=== PATIENT | male | born 1960 | race Two or more races ===

== ENCOUNTER 2017-11-13 13:21 | Inpatient (IN) | payer BC ==
[~2017-11-13] VITALS: Ht 175.3 cm; Wt 99.8 kg
[2017-11-13] VITALS (14 sets, daily range): BP systolic 125–173; BP diastolic 65–99
[~2017-11-13 13:21] MED LIST: UNOBMED
[2017-11-13] MEDS ORDERED: Morphine Sulfate 10mg/ml Inj IVP ONE (13:45)
[2017-11-13 13:59] LABS: APPEARANCE,URINE CLEAR; BILIRUBIN, URINE NEGATIVE (NEGATIVE); COLOR,URINE PALE YELLOW; GLUCOSE, URINE (UA) NEGATIVE (NEGATIVE); KETONES,URINE 1+ (NEGATIVE); LEUKOCYTE ESTERASE ,URINE NEGATIVE (NEGATIVE); NITRITE,URINE NEGATIVE (NEGATIVE); PH,URINE 7 (4.5-8.0); PROTEIN,URINE 4+ (NEGATIVE); UROBILINOGEN,URINE NORMAL MG/DL (0.0-1.0)
[2017-11-13 14:05] LABS: BASOPHILS % (AUTO) 0.9 % (0.0-2.0); EOSINOPHILS % (AUTO) 2.3 % (0.0-3.0); HEMATOCRIT 50.5 % (42.0-52.0); LYMPHOCYTES % (AUTO) 21.2 % (20.0-45.0); MEAN CORPUSCULAR VOLUME 81 FL (80-99); MONOCYTES % (AUTO) 8.6 % (1.0-10.0); NEUTROPHILS % (AUTO) 66.9 % (45.0-75.0); PLATELET COUNT 271 K/UL (150-450); RED BLOOD COUNT 6.25 M/UL (4.70-6.10); RED CELL DISTRIBUTION WIDTH 12.3 % (11.6-14.8); WHITE BLOOD COUNT 14.5 K/UL (4.8-10.8)
[2017-11-13 14:11] LABS: ANION GAP 8 mmol/L (5-15); BLOOD UREA NITROGEN 20 mg/dL (7-18); CALCIUM 9.2 MG/DL (8.5-10.1); CARBON DIOXIDE 28 MMOL/L (21-32); CHLORIDE 99 MMOL/L (98-107); CREATININE 1.6 MG/DL (0.55-1.30); POTASSIUM 3.6 MMOL/L (3.5-5.1); SODIUM 135 MMOL/L (136-145)
[2017-11-13 14:25] LABS: ALANINE AMINOTRANSFERASE 36 U/L (12-78); ALBUMIN 3.5 G/DL (3.4-5.0); ALBUMIN/GLOBULIN RATIO 0.9 (1.0-2.7); ALKALINE PHOSPHATASE 117 U/L (46-116); ASPARTATE AMINO TRANSFERASE 36 U/L (15-37); BILIRUBIN,TOTAL 0.9 MG/DL (0.2-1.0); CKMB 6.8 NG/ML (0.0-3.6); CREATINE KINASE 391 U/L (26-308)
[2017-11-13] MEDS ORDERED: cefTRIAXone 1 GM in NS 55 ML IVPB ONE (14:30)
--- NOTE | 2017-11-13 14:35 | Emergency Room Report ---
History of Present Illness General Chief Complaint: Abdominal Pain Source: Patient, EMS Present Illness HPI 57-year-old male with history of hypertension, p/w abdominal pain for 3 days. Patient states pain started gradually, localized to epigastric area and then since then has spread all over the abdomen especially the lower parts,, burning in nature, constant. No relieving or exacerbating factors. Severity is 7 out of 10. Denies nausea vomiting or diarrhea. His last bowel movement was on Saturday which was normal. Denies actual fever but states that he has had chills and diaphoresis Only a history of prostate surgery No hx of endoscopies/colonoscopies. Allergies: Coded Allergies: No Known Allergies (Unverified , 11/13/17) Patient History Past Medical History: see triage record Past Surgical History: none Pertinent Family History: none Social History: Reports: smoking - used to smoke 5 cigarettes a day only Reviewed Nursing Documentation: PMH: Agreed; PSxH: Agreed Nursing Documentation-PMH Past Medical History: No Stated History Hx Hypertension: Yes Review of Systems All Other Systems: negative except mentioned in HPI Physical Exam Vital Signs Date Time Temp Pulse Resp B/P (MAP) Pulse Ox O2 Delivery O2 Flow Rate FiO2 11/13/17 13:17 98.8 88 18 9/76 98 Room Air 98.8 Sp02 EP Interpretation: reviewed, normal General Appearance: alert, GCS 15, non-toxic, moderate distress Head: normocephalic, atraumatic Eyes: bilateral eye normal inspection, bilateral eye PERRL, bilateral eye EOMI ENT: normal ENT inspection, normal pharynx, normal voice, moist mucus membranes Neck: normal inspection, full range of motion, supple Respiratory: normal inspection, lungs clear, normal breath sounds, no respiratory distress, no retraction, no wheezing, speaking full sentences, chest symmetrical Cardiovascular #1: normal inspection, regular rate, rhythm, no edema, normal capillary refill Cardiovascular #2: 2+ radial (R), 2+ radial (L) Gastrointestinal: other - Slightly distended abdomen, has generalized tenderness however is soft, not peritoneal, no rigidity Genitourinary: no CVA tenderness Musculoskeletal: normal inspection, back normal, normal range of motion, non- tender Neurologic: normal inspection, alert, oriented x3, responsive, motor strength/ tone normal, sensory intact, normal gait, speech normal Psychiatric: normal inspection, judgement/insight normal, memory normal Skin: normal inspection, normal color, no rash, warm/dry, well hydrated, normal turgor Medical Decision Making Diagnostic Impression: Primary Impression: Acute cholecystitis ER Course 57-year-old male with abdominal pain Differential Diagnosis: Gastritis, gastroenteritis, cholecystitis, appendicitis, diverticulitis, SBO, AAA, cardiac, UTI/pyelo . Plan: Basic labs, ua, ekg pain control, IVF CT abdopelvis without contrast was already ordered ER course: Patient has remained HD stable during ED stay. he received IVF, and abx has been NPO since 6am +acute cholecysitits on CT, Dr Porter came to see pt and will take to OR Disposition: Patient will be admitted to med surg via OR with Dr Porter Please note that this Emergency Department Report was dictated using [employer] graphic [employer] software, occasionally this can lead to erroneous entry secondary to interpretation by the dictation equipment EKG Diagnostic Results EP Interpretation: Yes Rate: normal Rhythm: NSR ST Segments: Slight prolonged QT at 482, ST depressions in V4 V5, ST depressions aVL ASA given to patient: No Rhythm Strip EP Interpretation: Yes Rate: 90 Rhythm: NSR, no PVCs, no ectopy Chest X-ray CXR: Ordered: Yes 1 view Indication: Chest pain EP interpretation: Yes Interpretation: No consolidation, no effusion, no PTX, no acute cardiopulmonary disease Impression: No acute disease Electronically signed by Jody Wiggins MD Laboratory Tests Test 11/13/17 13:30 11/13/17 13:39 11/13/17 15:00 Urine Color Pale yellow Urine Appearance Clear Urine pH 7 (4.5-8.0) Urine Specific [place] 1.010 (1.005-1.035) Urine Protein 4+ (NEGATIVE) H Urine Glucose (UA) Negative (NEGATIVE) Urine Ketones 1+ (NEGATIVE) H Urine Occult Blood 2+ (NEGATIVE) H Urine Nitrite Negative (NEGATIVE) Urine Bilirubin Negative (NEGATIVE) Urine Urobilinogen Normal MG/DL (0.0-1.0) Urine Leukocyte Esterase Negative (NEGATIVE) Urine RBC 2-4 /HPF (0 - 0) H Urine WBC 0-2 /HPF (0 - 0) Urine Squamous Epithelial Cells Occasional /LPF Urine Bacteria Occasional /HPF (NONE) White Blood Count 14.5 K/UL (4.8-10.8) H Red Blood Count 6.25 M/UL (4.70-6.10) H Hemoglobin 16.0 G/DL (14.2-18.0) Hematocrit 50.5 % (42.0-52.0) Mean Corpuscular Volume 81 FL (80-99) Mean Corpuscular Hemoglobin 25.6 PG (27.0-31.0) L Mean Corpuscular Hemoglobin Concent 31.6 G/DL (32.0-36.0) L Red Cell Distribution Width 12.3 % (11.6-14.8) Platelet Count 271 K/UL (150-450) Mean Platelet Volume 6.0 FL (6.5-10.1) L Neutrophils (%) (Auto) 66.9 % (45.0-75.0) Lymphocytes (%) (Auto) 21.2 % (20.0-45.0) Monocytes (%) (Auto) 8.6 % (1.0-10.0) Eosinophils (%) (Auto) 2.3 % (0.0-3.0) Basophils (%) (Auto) 0.9 % (0.0-2.0) Sodium Level 135 MMOL/L (136-145) L Potassium Level 3.6 MMOL/L (3.5-5.1) Chloride Level 99 MMOL/L (98-107) Carbon Dioxide Level 28 MMOL/L (21-32) Anion Gap 8 mmol/L (5-15) Blood Urea Nitrogen 20 mg/dL (7-18) H Creatinine 1.6 MG/DL (0.55-1.30) H Estimate Glomerular Filtration Rate 44.5 mL/min (>60) Glucose Level 194 MG/DL (74-106) H Calcium Level 9.2 MG/DL (8.5-10.1) Total Bilirubin 0.9 MG/DL (0.2-1.0) Aspartate Amino Transferase (AST) 36 U/L (15-37) Alanine Aminotransferase (ALT) 36 U/L (12-78) Alkaline Phosphatase 117 U/L (46-116) H Total Creatine Kinase 391 U/L (26-308) H Creatine Kinase MB 6.8 NG/ML (0.0-3.6) H Creatine Kinase MB Relative Index 1.7 Troponin I 0.084 ng/mL (0.000-0.056) Total Protein 7.5 G/DL (6.4-8.2) Albumin 3.5 G/DL (3.4-5.0) Globulin 4.0 g/dL Albumin/Globulin Ratio 0.9 (1.0-2.7) L Lipase 117 U/L (73-393) Prothrombin Time 10.0 SEC (9.30-11.50) Prothrombin Time INR 1.0 (0.9-1.1) PTT 26 SEC (23-33) Lactic Acid Level Pending CT/MRI/US Diagnostic Results CT/MRI/US Diagnostic Results : Imaging Test Ordered: CT abdo pelvisd Impression Impression: Abnormal appearing gallbladder, which contains gallstones. There is also moderately dense material filling much of the gallbladder lumen. This may represent tumefactive sludge, an amorphous gallstone tumor, or blood. There is also infiltration of the pericholecystic fat. This raises concern for acute cholecystitis. However, the presence of bloody appearing intraperitoneal fluid also raises concern for gallbladder wall hemorrhage. Ultrasound and/or hepatobiliary nuclear scanning may be useful for further evaluation Mildly ectatic common hepatic duct, tapering to normal caliber distal common bile duct, and no evidence of downstream obstruction. Correlate with liver function tests Other findings as noted, including lobulated bilateral kidneys, evidence of prior TURP, degenerative spondylosis Findings discussed by phone with Dr. Wiggins in the emergency room at the time of interpretation Last Vital Signs Date Time Temp Pulse Resp B/P (MAP) Pulse Ox O2 Delivery O2 Flow Rate FiO2 11/13/17 13:41 98.8 11/13/17 13:17 88 18 9/76 98 Room Air Disposition: ADMITTED INPATIENT Condition: Jody Hogan M.D. Nov 13, 2017 14:35
--- NOTE | 2017-11-13 15:19 | Diagnostic Imaging Report ---
Indication: Epigastric pain Technique: Spiral acquisitions obtained through the abdomen and pelvis. No oral contrast utilized, per emergency room physician request No IV contrast utilized, per referring physician request.. Multiplanar reconstructions were generated. Total dose length product 1043.26 mGycm. CTDIvol(s) 19.75 mGy. Dose reduction achieved using automated exposure control Comparison: None Findings: The gallbladder is very abnormal in appearance. Multiple discrete calcified gallstones are seen within the gallbladder lumen. Also filling the gallbladder lumen is moderately dense material, most of which appears to be separate from the gallbladder wall but may be contiguous with the gallbladder wall inferiorly. There is infiltration of the fat surrounding the gallbladder. There is fluid seen in the peritoneal space adjacent to the tip of the right hepatic lobe and within the right paracolic gutter. There is also fluid in the pelvis, which is somewhat high attenuation, indicating that it may be bloody, and in particular deep within the pelvis higher attenuation of the fluid suggests a component of blood. The gallbladder wall is equivocally edematous. The common hepatic duct is ectatic but tapers to normal caliber, bile duct, and now downstream obstructive lesion is demonstrated. Lack of IV contrast limits assessment of the other solid organs. The liver is grossly unremarkable. The pancreas, spleen, adrenals are unremarkable. The kidneys are lobulated bilaterally, particularly the left, and somewhat atrophic. No definite focal parenchymal abnormality. No hydronephrosis or hydroureter, renal or ureteral calculi. The bladder is equivocally mildly thick-walled, probably an artifact of under distention. The prostate demonstrates a TURP defect. No evidence of diverticulosis or diverticulitis. The appendix is normal. No small bowel distention. No free intraperitoneal air. Distal esophagus, stomach, duodenum are unremarkable. The included lung bases are clear. The bones demonstrate degenerative spondylosis changes. Impression: Abnormal appearing gallbladder, which contains gallstones. There is also moderately dense material filling much of the gallbladder lumen. This may represent tumefactive sludge, an amorphous gallstone tumor, or blood. There is also infiltration of the pericholecystic fat. This raises concern for acute cholecystitis. However, the presence of bloody appearing intraperitoneal fluid also raises concern for gallbladder wall hemorrhage. Ultrasound and/or hepatobiliary nuclear scanning may be useful for further evaluation Mildly ectatic common hepatic duct, tapering to normal caliber distal common bile duct, and no evidence of downstream obstruction. Correlate with liver function tests Other findings as noted, including lobulated bilateral kidneys, evidence of prior TURP, degenerative spondylosis Findings discussed by phone with Dr. Wiggins in the emergency room at the time of interpretation The CT scanner at [facility] is accredited by the [employer] and the scans are performed using protocols designed to limit radiation exposure to as low as reasonably achievable to attain images of sufficient resolution adequate for diagnostic evaluation.
[2017-11-13] MEDS ORDERED: Propofol 200mg/20ml IV ONE (16:38)
[2017-11-13] MEDS ORDERED: Lidocaine 1% MPF 10mg/ml 5ml ONE (16:38)
[2017-11-13] MEDS ORDERED: fentaNYL 100 mcg/2 mL IV ONE (16:41)
[2017-11-13] MEDS ORDERED: Midazolam 2mg/2ml Inj ONE (16:41)
[2017-11-13] MEDS ORDERED: EPINEPHrine 1mg/1ml Amp ONE (16:52)
[2017-11-13] MEDS ORDERED: Lidocaine 1% 10mg/ml/EPI 0.01mg/ml 50ml INJ ONE (16:53)
[2017-11-13] MEDS ORDERED: Iothalamate Meglumine 60% 30ML INJ ONE (16:53)
[2017-11-13] MEDS ORDERED: Bupivacaine 0.25% Inj 30ml INJ ONE (16:53)
[2017-11-13] MEDS ORDERED: Zemuron 50mg/5ml Inj IV ONE (16:58)
[2017-11-13] MEDS ORDERED: NS Irrig 1000ml ONE (17:00)
[2017-11-13] MEDS ORDERED: LR 1000ml ONE (17:00)
[2017-11-13] MEDS ORDERED: Sterile Water Irrig 1000ml IRRIG ONE (17:00)
--- NOTE | 2017-11-13 17:02 | Consultation ---
History of Present Illness General Date patient seen: Nov 13, 2017 Chief Complaint: Abdominal Pain Reason for Consultation: abdominal pain Present Illness HPI 57M presented to ED with complaints of worsening abdominal pain. States he first began to note abdominal discomfort 4 days ago and since has been worsening. abdominal pain described as 6-8/10 generalized pain but some focus in RUQ. no n/v/f/c. in Ed noted to have leukocytosis and CT scan with findings as noted below. surgery called to evaluate. patient seen, chart reviewed, patient examined. no prior episodes. last meal this AM. no radiation of pain. no prior abdominal surgery. Allergies: Coded Allergies: No Known Allergies (Unverified , 11/13/17) Medication History Miscellaneous Medications Unable to Obtain Medications (Unable To Obtain Meds), (Reported) Patient History History Provided By: Patient, Medical Record, PMD Healthcare decision maker N Resuscitation status Advanced Directive on File Past Medical/Surgical History Past Medical/Surgical History: (1) Acute cholecystitis Review of Systems Constitutional: Reports: no symptoms; Denies: see HPI, chills, sweats, fever, malaise, weakness, other Eye: Reports: no symptoms; Denies: see HPI, eye pain, blurred vision, tearing, double vision, nose pain, nose congestion, acuity changes, discharge, other ENT: Denies: no symptoms, see HPI, ear pain, ear discharge, nose pain, nose congestion, throat pain, throat swelling, mouth pain, hearing loss, nasal discharge, other Respiratory: Denies: no symptoms, see HPI, cough, orthopnea, shortness of breath, stridor, wheezing, LEVY, sputum, other Cardiovascular: Denies: no symptoms, see HPI, chest pain, edema, palpitations, syncope, PND, other Gastrointestinal: Reports: abdominal pain Genitourinary: Denies: no symptoms, see HPI, discharge, dysuria, frequency, hematuria, pain, retention, incontinence, urgency, vag bleed/dc, other Musculoskeletal: Denies: no symptoms, see HPI, back pain, gout, joint pain, joint swelling, muscle pain, muscle stiffness, other Skin: Denies: no symptoms, see HPI, rash, change in color, change in hair/nails , dryness, lesions, other Psychiatric: Denies: no symptoms, see HPI, prior hx, anxiety, depressed feelings, emotional problems, SI, HI, hallucinations, other Neurological: Denies: no symptoms, see HPI, headache, numbness, paresthesia, seizure, tingling, tremors, focal weakness, syncope, dizziness, other Endocrine: Denies: no symptoms, see HPI, excessive sweating, flushing, intolerance to temperature, increased thirst, increased urine, unexplained weight loss, other Hematologic/Lymphatic: Denies: no symptoms, see HPI, anemia, blood clots, easy bleeding, easy bruising, swollen glands, diathesis, other All Other Systems: negative except mentioned in HPI Physical Exam General Appearance: no apparent distress Lines, tubes and drains: peripheral HEENT: normocephalic, atraumatic, mucous membranes moist Neck: normal inspection Respiratory/Chest: normal breath sounds, no respiratory distress, no accessory muscle use Cardiovascular/Chest: normal peripheral pulses, normal rate Abdomen: distended, guarding, rebound, tender, other - RUQ tenderness with + Baylis and focal peritonitis. Extremities: non-tender Skin Exam: normal pigmentation Neurologic: alert, oriented x 3 Last 24 Hour Vital Signs Date Time Temp Pulse Resp B/P (MAP) Pulse Ox O2 Delivery O2 Flow Rate FiO2 11/13/17 16:46 90 24 162/68 98 Room Air 11/13/17 15:23 98.8 11/13/17 15:00 100 22 134/69 97 Room Air 11/13/17 13:41 98.8 11/13/17 13:17 98.8 88 18 9/76 98 Room Air 98.8 Laboratory Tests Test 11/13/17 13:30 11/13/17 13:39 11/13/17 15:00 Urine Color Pale yellow Urine Appearance Clear Urine pH 7 (4.5-8.0) Urine Specific [place] 1.010 (1.005-1.035) Urine Protein 4+ (NEGATIVE) H Urine Glucose (UA) Negative (NEGATIVE) Urine Ketones 1+ (NEGATIVE) H Urine Occult Blood 2+ (NEGATIVE) H Urine Nitrite Negative (NEGATIVE) Urine Bilirubin Negative (NEGATIVE) Urine Urobilinogen Normal MG/DL (0.0-1.0) Urine Leukocyte Esterase Negative (NEGATIVE) Urine RBC 2-4 /HPF (0 - 0) H Urine WBC 0-2 /HPF (0 - 0) Urine Squamous Epithelial Cells Occasional /LPF Urine Bacteria Occasional /HPF (NONE) White Blood Count 14.5 K/UL (4.8-10.8) H Red Blood Count 6.25 M/UL (4.70-6.10) H Hemoglobin 16.0 G/DL (14.2-18.0) Hematocrit 50.5 % (42.0-52.0) Mean Corpuscular Volume 81 FL (80-99) Mean Corpuscular Hemoglobin 25.6 PG (27.0-31.0) L Mean Corpuscular Hemoglobin Concent 31.6 G/DL (32.0-36.0) L Red Cell Distribution Width 12.3 % (11.6-14.8) Platelet Count 271 K/UL (150-450) Mean Platelet Volume 6.0 FL (6.5-10.1) L Neutrophils (%) (Auto) 66.9 % (45.0-75.0) Lymphocytes (%) (Auto) 21.2 % (20.0-45.0) Monocytes (%) (Auto) 8.6 % (1.0-10.0) Eosinophils (%) (Auto) 2.3 % (0.0-3.0) Basophils (%) (Auto) 0.9 % (0.0-2.0) Sodium Level 135 MMOL/L (136-145) L Potassium Level 3.6 MMOL/L (3.5-5.1) Chloride Level 99 MMOL/L (98-107) Carbon Dioxide Level 28 MMOL/L (21-32) Anion Gap 8 mmol/L (5-15) Blood Urea Nitrogen 20 mg/dL (7-18) H Creatinine 1.6 MG/DL (0.55-1.30) H Estimat Glomerular Filtration Rate 44.5 mL/min (>60) Glucose Level 194 MG/DL (74-106) H Calcium Level 9.2 MG/DL (8.5-10.1) Total Bilirubin 0.9 MG/DL (0.2-1.0) Aspartate Amino Transf (AST/SGOT) 36 U/L (15-37) Alanine Aminotransferase (ALT/SGPT) 36 U/L (12-78) Alkaline Phosphatase 117 U/L (46-116) H Total Creatine Kinase 391 U/L (26-308) H Creatine Kinase MB 6.8 NG/ML (0.0-3.6) H Creatine Kinase MB Relative Index 1.7 Troponin I 0.084 ng/mL (0.000-0.056) Total Protein 7.5 G/DL (6.4-8.2) Albumin 3.5 G/DL (3.4-5.0) Globulin 4.0 g/dL Albumin/Globulin Ratio 0.9 (1.0-2.7) L Lipase 117 U/L (73-393) Prothrombin Time 10.0 SEC (9.30-11.50) Prothromb Time International Ratio 1.0 (0.9-1.1) Activated Partial Thromboplast Time 26 SEC (23-33) Lactic Acid Level 1.30 mmol/L (0.4-2.0) Height (Feet): 5 Height (Inches): 9.00 Weight (Pounds): 220 Assessment/Plan Problem List: (1) Acute cholecystitis Assessment & Plan: 57M with acute cholecystitis. Afebrile, HD stable, leukocytosis 14k, elevated alk phos, CT scan as noted. exam with focal RUQ peritonitis, generalized tenderness, +Baylis. CT scan very concerning given look of GB. exam significant given above needs to go to OR to OR for lap vs open anthony possible IOC long discussion with patient about high risk for open given how GB looks on CT consent npo iv fluids iv abx ICD Codes: K81.0 - Acute cholecystitis SNOMED: [id number] Status: stable CharlotteChris Nov 13, 2017 17:02
--- NOTE | 2017-11-13 17:04 | Anethesia Preoperative Eval ---
Anesthesia Pre-op PMH/ROS General Date of Evaluation: Nov 13, 2017 Time of Evaluation: 17:00 Anesthesiologist: ASA Score: ASA 3 Mallampati Score Class I : Soft palate, uvula, fauces, pillars visible Class II: Soft palate, uvula, fauces visible Class III: Soft palate, base of uvula visible Class IV: Only hard plate visible Mallampati Classification: Class III Surgeon: дмитрий Diagnosis: acute cholecystitis Surgical Procedure: lap anthony Anesthesia History: none Allergies: Coded Allergies: No Known Allergies (Unverified , 11/13/17) Medications: see eMAR Past Medical History Cardiovascular: Reports: HTN Pulmonary: Denies: asthma, COPD, [place], other Gastrointestinal/Genitourinary: Reports: other - acute cholecystitis; Denies: GERD, CRI, ESRD Neurologic/Psychiatric: Denies: dementia, CVA, depression/anxiety, TIA, other Endocrine: Denies: DM, hypothyroidism, steroids, other HEENT: Denies: cataract (L), cataract (R), glaucoma, [place] (L), [place] (R), other Hematology/Immune: Denies: anemia, DVT, bleeding disorder, other Musculoskeletal/Integumentary: Denies: OA, RA, DJD, DDD, edema, other Other: obesity PSxH Narrative: prostate, breast mass excision Anesthesia Pre-op Phys. Exam Physician Exam Last Vital Signs Date Time Temp Pulse Resp B/P (MAP) Pulse Ox O2 Delivery O2 Flow Rate FiO2 11/13/17 16:46 90 24 162/68 98 Room Air 11/13/17 15:23 98.8 Constitutional: other - abdominal discomfort Cardiovascular: RRR Respiratory: CTA Gastrointestinal: other - abdominal discomfort Airway Exam Mallampati Score: Class II MO: full ROM: full Teeth: intact Dentures: no upper, no lower Anesthesia Pre-op A/P Labs Hematology Test 11/13/17 13:39 White Blood Count 14.5 K/UL (4.8-10.8) H Red Blood Count 6.25 M/UL (4.70-6.10) H Hemoglobin 16.0 G/DL (14.2-18.0) Hematocrit 50.5 % (42.0-52.0) Mean Corpuscular Volume 81 FL (80-99) Mean Corpuscular Hemoglobin 25.6 PG (27.0-31.0) L Mean Corpuscular Hemoglobin Concent 31.6 G/DL (32.0-36.0) L Red Cell Distribution Width 12.3 % (11.6-14.8) Platelet Count 271 K/UL (150-450) Mean Platelet Volume 6.0 FL (6.5-10.1) L Neutrophils (%) (Auto) 66.9 % (45.0-75.0) Lymphocytes (%) (Auto) 21.2 % (20.0-45.0) Monocytes (%) (Auto) 8.6 % (1.0-10.0) Eosinophils (%) (Auto) 2.3 % (0.0-3.0) Basophils (%) (Auto) 0.9 % (0.0-2.0) Coagulation Test 11/13/17 15:00 Prothrombin Time 10.0 SEC (9.30-11.50) Prothromb Time International Ratio 1.0 (0.9-1.1) Activated Partial Thromboplast Time 26 SEC (23-33) Chemistry Test 11/13/17 13:39 11/13/17 15:00 Sodium Level 135 MMOL/L (136-145) L Potassium Level 3.6 MMOL/L (3.5-5.1) Chloride Level 99 MMOL/L (98-107) Carbon Dioxide Level 28 MMOL/L (21-32) Anion Gap 8 mmol/L (5-15) Blood Urea Nitrogen 20 mg/dL (7-18) H Creatinine 1.6 MG/DL (0.55-1.30) H Estimat Glomerular Filtration Rate 44.5 mL/min (>60) Glucose Level 194 MG/DL (74-106) H Calcium Level 9.2 MG/DL (8.5-10.1) Total Bilirubin 0.9 MG/DL (0.2-1.0) Aspartate Amino Transf (AST/SGOT) 36 U/L (15-37) Alanine Aminotransferase (ALT/SGPT) 36 U/L (12-78) Alkaline Phosphatase 117 U/L (46-116) H Total Creatine Kinase 391 U/L (26-308) H Creatine Kinase MB 6.8 NG/ML (0.0-3.6) H Creatine Kinase MB Relative Index 1.7 Troponin I 0.084 ng/mL (0.000-0.056) Total Protein 7.5 G/DL (6.4-8.2) Albumin 3.5 G/DL (3.4-5.0) Globulin 4.0 g/dL Albumin/Globulin Ratio 0.9 (1.0-2.7) L Lipase 117 U/L (73-393) Lactic Acid Level 1.30 mmol/L (0.4-2.0) Risk Assessment & Plan Assessment: asa 3 Plan: ETGA Pre-Antibiotics Drug: ancef 2 grams Given Within 1 Hr of Incision: Yes Time Given: 17:50 Bev Wheeler M.D. Nov 13, 2017 17:04
--- NOTE | 2017-11-13 17:04 | Pre-Procedure Note/Attestation ---
Pre-Procedure Note/Attestation Complete Prior to Procedure Procedure Narrative: laparoscopic cholecystectomy, possible open, possible intraoperative cholangiogram Indications for Procedure Pre-Operative Diagnosis: acute cholecystitis Attestation I attest that I discussed the nature of the procedure; its benefits; risks and complications; and alternatives (and the risks and benefits of such alternatives ), prior to the procedure, with the patient (or the patient's legal bilingual inside sales representative). I attest that, if there was a reasonable possibility of needing a blood transfusion, the patient (or the patient's legal bilingual inside sales representative) was given the [facility] standardized written summary, pursuant to the [place] Blood Safety Act ([place] Health and Safety Code # 1645, as amended). I attest that I re-evaluated the patient just prior to the surgery and that there has been no change in the patient's H&P, except as documented below: Chris Porter Nov 13, 2017 17:04
[2017-11-13] MEDS ORDERED: Succinylcholine 20mg/ml 10ml vial ONE (17:15)
[2017-11-13] MEDS ORDERED: LR 1000ml 1,000 ML IVLG SCH (18:07)
[2017-11-13] MEDS ORDERED: DiphenhydrAMINE 50mg/ml Inj IVP PRN ×2 (18:15→22:30)
[2017-11-13] MEDS ORDERED: Hydromorphone 0.5mg/0.5ml inj IVP PRN (18:15)
[2017-11-13] MEDS ORDERED: Labetalol 5mg/ml 20ml vial IV PRN (18:15)
[2017-11-13] MEDS ORDERED: fentaNYL 100 mcg/2 mL IV PRN (18:15)
[2017-11-13] MEDS ORDERED: Surgicel 4in x 8in TOPIC ONE (19:00)
[2017-11-13] MEDS ORDERED: Neostigmine 1mg/ml 10ml Inj ONE (19:24)
[2017-11-13] MEDS ORDERED: Glycopyrrolate 0.2mg/ml 1ml Vial ONE ×2 (19:37→19:55)
--- NOTE | 2017-11-13 19:57 | Brief Operative Note ---
Immediate Post Operative Note Operative Note Pre-op Diagnosis: acute cholecystitis Procedure: laparoscopic converted to open cholecystectomy Post-op Diagnosis: acute gangrenous hemorrhagic cholecystitis Surgeon: дмитрий Anesthesiologist: Marcello Anesthesia: general Specimen: yes - gallbladder and stones Complications: none Condition: stable Fluids: see records Estimated Blood Loss: minimal - 500 Drains: none Implant(s) used?: No Chris Porter Nov 13, 2017 19:57
[2017-11-13] MEDS ORDERED: Sugammadex Sodium 200mg/2ml vial IV ONE (20:12)
--- NOTE | 2017-11-13 20:28 | Immediate Post-Op Evaluation ---
Immediate Post-Op Evalulation Immediate Post-Op Evalulation Procedure: attempt lap anthony converted to open cholecystectomy Date of Evaluation: Nov 13, 2017 Time of Evaluation: 20:05 IV Fluids: LR 2600ml Blood Products: 0 Estimated Blood Loss: 500ml Urinary Output: 0 Blood Pressure Systolic: 175 Blood Pressure Diastolic: 95 Pulse Rate: 112 Respiratory Rate: 22 O2 Sat by Pulse Oximetry: 99 Temperature (Fahrenheit): 97 Pain Score (1-10): 0 Nausea: No Vomiting: No Complications none Patient Status: awake, patent, none Hydration Status: adequate Drug: ancef 2 gram Given Within 1 Hr of Incision: Yes Time Given: 17:45 Bev Wheeler M.D. Nov 13, 2017 20:28
[2017-11-13] MEDS ORDERED: Meperidine 50mg/ml Inj(FOR RIGORS ONLY) ONE (20:31)
[2017-11-13] MEDS ORDERED: Meperidine 50mg/ml Inj(FOR RIGORS ONLY) IVP ONE (21:30)
[2017-11-13] MEDS ORDERED: Metoclopramide 10mg/2ml Inj IVP PRN (22:30)
[2017-11-13] MEDS ORDERED: Morphine Sulfate 4mg/ml Inj IVP PRN (22:31)
[2017-11-13] MEDS ORDERED: Norco 5mg/325mg tab ORAL PRN (22:31)
[2017-11-13] MEDS ORDERED: Zolpidem 5mg tab ORAL PRN (22:31)
[2017-11-13] MEDS ORDERED: Milk of Magnesia 30ml Ud ORAL PRN (22:31)
[2017-11-13] MEDS ORDERED: Piperacillin/Tazobactam 3.375 GM in NS 110 ML IVPB ONE (23:00)
[2017-11-13] MEDS ORDERED: Zosyn 3.375gm inj ONE (23:11)
[2017-11-13] MEDS: D5 1/2NS w/KCl 20mEq 1,000 ML IV SCH (23:20)
[2017-11-14] VITALS: BP 121/64
[2017-11-14 04:00] VITALS: BP 121/66
[2017-11-14] MEDS: D5 1/2NS w/KCl 20mEq 1,000 ML IV SCH ×3 (06:16→22:03)
[2017-11-14 06:44] LABS: BASOPHILS % (AUTO) 0.7 % (0.0-2.0); HEMOGLOBIN 12.4 G/DL (14.2-18.0); LYMPHOCYTES % (AUTO) 10.1 % (20.0-45.0); MEAN CORPUSCULAR VOLUME 80 FL (80-99); MONOCYTES % (AUTO) 10.8 % (1.0-10.0); NEUTROPHILS % (AUTO) 78.4 % (45.0-75.0); PLATELET COUNT 236 K/UL (150-450); RED BLOOD COUNT 4.76 M/UL (4.70-6.10); RED CELL DISTRIBUTION WIDTH 12.3 % (11.6-14.8)
[2017-11-14 07:15] LABS: ALANINE AMINOTRANSFERASE 191 U/L (12-78); ALBUMIN 2.3 G/DL (3.4-5.0); ALBUMIN/GLOBULIN RATIO 0.7 (1.0-2.7); ALKALINE PHOSPHATASE 104 U/L (46-116); ANION GAP 8 mmol/L (5-15); ASPARTATE AMINO TRANSFERASE 203 U/L (15-37); BILIRUBIN,TOTAL 1.4 MG/DL (0.2-1.0); BLOOD UREA NITROGEN 26 mg/dL (7-18); CALCIUM 7.8 MG/DL (8.5-10.1); CARBON DIOXIDE 24 MMOL/L (21-32); CHLORIDE 104 MMOL/L (98-107); CREATININE 1.8 MG/DL (0.55-1.30); POTASSIUM 4.4 MMOL/L (3.5-5.1); SODIUM 136 MMOL/L (136-145)
[2017-11-14 07:16] LABS: BILIRUBIN,DIRECT 0.5 MG/DL (0.0-0.3)
[2017-11-14 08:00] VITALS: BP 127/62
[2017-11-14] MEDS: Docusate 100mg cap ORAL SCH ×2 (09:37→17:30)
[2017-11-14] MEDS: HYDROcodone/Acetamin 10/325 tab ORAL PRN ×2 (09:37→17:30)
[2017-11-14 12:00] VITALS: BP 130/61
--- NOTE | 2017-11-14 15:03 | History and Physical ---
History of Present Illness General Date patient seen: Nov 14, 2017 Time patient seen: 15:02 Reason for Hospitalization: Abdominal Pain Present Illness HPI 57 y/o male with a PMH of HTN that presented to the ER yesterday for acute RUQ pain. Patient states that he had had abdominal discomfort for the last 4 days and has since been worsening. Patient was noted to have a WBC a [address] was noted to show gallstones with acute cholecystitis and the presence of bloody appearing intraperitoneal fluid raising concern for GB wall hemorrhage. Mildly ectatic common hepatic duct with no e/o downstream obstruction. Patient was also noted to have elevated LFTs. Patient was seen by surgery and taken to the OR last night for an open cholecystectomy with no periop or postop complications. Today, patient is stable with pain well controlled. Rudd catheter removed, voiding well. Reports ambulating well and tolerating clear liquid diet. Denies cp, sob, n/v, f/c, d/c. Denies passing flatus. Allergies: Coded Allergies: No Known Allergies (Unverified , 11/13/17) Medication History Miscellaneous Medications Unable to Obtain Medications (Unable To Obtain Meds), (Reported) Patient History History Provided By: Patient Healthcare decision maker N Resuscitation status Full Code Advanced Directive on File Review of Systems All Other Systems: negative except mentioned in HPI Physical Exam General Appearance: no apparent distress, alert HEENT: normocephalic, atraumatic Neck: non-tender, normal alignment, supple Respiratory/Chest: chest wall non-tender, lungs clear, normal breath sounds Cardiovascular/Chest: normal peripheral pulses, normal rate, regular rhythm Abdomen: normal bowel sounds, soft, other - surgical incision wrapped. TTP to area of incision Skin Exam: normal pigmentation, warm/dry, other - surgical incision to abdomen c/d/i Neurologic: sort manager II-XII grossly normal, no motor/sensory deficits, alert, oriented x 3 Last 24 Hour Vital Signs Date Time Temp Pulse Resp B/P (MAP) Pulse Ox O2 Delivery O2 Flow Rate FiO2 11/14/17 12:00 98.3 96 20 130/61 98 Room Air 98.3 11/14/17 10:36 98.9 11/14/17 09:37 98.9 11/14/17 08:00 98.2 91 21 127/62 99 Room Air 98.2 11/14/17 04:00 98.9 85 18 121/66 97 Nasal Cannula 3.0 98.9 11/14/17 00:00 99.1 84 20 121/64 99 Nasal Cannula 3.0 99.1 11/13/17 22:45 98.7 89 20 125/65 99 Nasal Cannula 3.0 98.7 11/13/17 21:45 100.0 90 18 148/69 98 Nasal Cannula 3 100.0 11/13/17 21:30 98.8 90 16 145/69 98 Nasal Cannula 3 98.8 11/13/17 21:15 89 16 154/71 100 Nasal Cannula 3 11/13/17 21:00 87 18 152/70 100 Simple Mask 8 11/13/17 20:48 105 172/95 11/13/17 20:48 107 20 172/95 98 Simple Mask 8 11/13/17 20:35 105 20 171/98 98 Simple Mask 8 11/13/17 20:32 97.0 11/13/17 20:30 97.0 112 25 173/97 97 Simple Mask 8 97.0 11/13/17 20:28 206.6 112 22 99 11/13/17 20:25 110 20 171/96 98 Simple Mask 8 11/13/17 20:14 108 24 170/98 100 Simple Mask 8 11/13/17 20:09 107 21 173/99 99 Simple Mask 8 11/13/17 20:04 97.0 117 26 172/95 97 Simple Mask 8 97.0 11/13/17 16:46 90 24 162/68 98 Room Air 11/13/17 15:23 98.8 Intake and Output 11/13/17 11/14/17 19:00 07:00 Intake Total 55 ml 3920 ml Output Total 900 ml Balance 55 ml 3020 ml Intake Oral 120 ml IV Total 55 ml 3800 ml Output Urine Total 400 ml Estimated Blood Loss 500 ml # Voids 1 Laboratory Tests Test 11/14/17 05:30 White Blood Count 11.0 K/UL (4.8-10.8) H Red Blood Count 4.76 M/UL (4.70-6.10) Hemoglobin 12.4 G/DL (14.2-18.0) L Hematocrit 38.0 % (42.0-52.0) L Mean Corpuscular Volume 80 FL (80-99) Mean Corpuscular Hemoglobin 26.0 PG (27.0-31.0) L Mean Corpuscular Hemoglobin Concent 32.5 G/DL (32.0-36.0) Red Cell Distribution Width 12.3 % (11.6-14.8) Platelet Count 236 K/UL (150-450) Mean Platelet Volume 6.8 FL (6.5-10.1) Neutrophils (%) (Auto) 78.4 % (45.0-75.0) H Lymphocytes (%) (Auto) 10.1 % (20.0-45.0) L Monocytes (%) (Auto) 10.8 % (1.0-10.0) H Eosinophils (%) (Auto) 0.0 % (0.0-3.0) Basophils (%) (Auto) 0.7 % (0.0-2.0) Sodium Level 136 MMOL/L (136-145) Potassium Level 4.4 MMOL/L (3.5-5.1) Chloride Level 104 MMOL/L (98-107) Carbon Dioxide Level 24 MMOL/L (21-32) Anion Gap 8 mmol/L (5-15) Blood Urea Nitrogen 26 mg/dL (7-18) H Creatinine 1.8 MG/DL (0.55-1.30) H Estimat Glomerular Filtration Rate 38.8 mL/min (>60) Glucose Level 169 MG/DL (74-106) H Calcium Level 7.8 MG/DL (8.5-10.1) L Total Bilirubin 1.4 MG/DL (0.2-1.0) H Direct Bilirubin 0.5 MG/DL (0.0-0.3) H Aspartate Amino Transf (AST/SGOT) 203 U/L (15-37) H Alanine Aminotransferase (ALT/SGPT) 191 U/L (12-78) H Alkaline Phosphatase 104 U/L (46-116) Total Protein 5.7 G/DL (6.4-8.2) L Albumin 2.3 G/DL (3.4-5.0) L Globulin 3.4 g/dL Albumin/Globulin Ratio 0.7 (1.0-2.7) L Height (Feet): 5 Height (Inches): 9.00 Weight (Pounds): 220 Medications Current Medications Medications (Trade) Dose Ordered Sig/Joel Route PRN Reason Start Time Stop Time Status Last Admin Dose Admin Acetaminophen (Tylenol) 650 mg Q6H PRN ORAL Mild Pain (Pain Scale 1-3) 11/13/17 22:31 12/13/17 22:30 Acetaminophen/ Hydrocodone Bitart ([place] 10/325) 1 tab Q4H PRN ORAL Severe Pain (Pain Scale 7-10) 11/13/17 22:31 11/20/17 22:30 11/14/17 09:37 Acetaminophen/ Hydrocodone Bitart ([place] 5/325) 1 tab Q4H PRN ORAL Moderate Pain (Pain Scale 4-6) 11/13/17 22:31 11/20/17 22:30 Al Hydroxide/Mg Hydroxide (Mylanta) 15 ml Q6H PRN ORAL DYSPEPSIA 11/13/17 22:31 12/13/17 22:30 Dextrose/ Electrolytes 1,000 ml @ 125 mls/hr Q8H IV 11/13/17 22:31 12/13/17 22:30 11/14/17 12:51 Diphenhydramine HCl (Benadryl) 12.5 mg Q6H PRN IVP Itching/Pruritis 11/13/17 22:30 12/13/17 22:29 Diphenhydramine HCl (Benadryl) 25 mg Q8H PRN ORAL Itching/Pruritis 11/13/17 22:30 12/13/17 22:29 Docusate Sodium (Colace) 100 mg TWICE A DAY ORAL 11/14/17 09:00 12/14/17 08:59 11/14/17 09:37 Magnesium Hydroxide (Mom) 30 ml BIDPRN PRN ORAL Constipation 11/13/17 22:31 12/13/17 22:30 Metoclopramide HCl (Reglan) 10 mg Q6H PRN IVP Nausea & Vomiting 11/13/17 22:30 12/13/17 22:29 Morphine Sulfate (Morphine Sulfate) 4 mg Q2H PRN IVP Severe Pain (Pain Scale 7-10) 11/13/17 22:31 11/20/17 22:30 Ondansetron HCl (Zofran) 4 mg Q6H PRN IVP Nausea & Vomiting 11/13/17 22:31 12/13/17 22:30 Zolpidem Tartrate (Ambien) 5 mg DAILYPRN PRN ORAL Insomnia 11/13/17 22:31 11/20/17 22:30 Assessment/Plan Problem List: (1) FRANKLIN (acute kidney injury) ICD Codes: N17.9 - Acute kidney failure, unspecified SNOMED: 52613988 (2) HTN (hypertension) ICD Codes: I10 - Essential (primary) hypertension SNOMED: 02718647 (3) Sepsis ICD Codes: A41.9 - Sepsis, unspecified organism SNOMED: 74030905 (4) Acute cholecystitis ICD Codes: K81.0 - Acute cholecystitis SNOMED: 42811436 Status: stable, progressing Assessment/Plan - Admit to inpatient - General surgery consulted, appreciate rec's - s/p open cholecystectomy, POD#1 - IV ceftriaxone and flagyl - IVF - CLD and ADAT - Trend Cr - pain control and supportive care - Hold home enalapril given FRANKLIN - PT/OT - educate on nutrition given s/p cholecystectomy (i.e. low fat foods) DVT Prophylaxis: SCD Code Status: Full Hospital Classification Declaration: Based on this initial evaluation, and depending on the patient's clinical course, I anticipate that this patient will require hospitalization for 2-3 days for acute cholecystitis and close respiratory/hemodynamic monitoring. Disposition: Once the patient is stable to leave the hospital, I anticipate the patient will likely be discharged to the following environment: home with I spent 73 minutes on this patient's case, and 43 minutes were dedicated to counseling and/or care coordination. Discussed with patient/family, nursing staff, SW/CM, general surgery regarding clinical status, treatment course, and disposition planning. Time of note may not reflect time of encounter. Rox Murphy NP Nov 14, 2017 15:03
--- NOTE | 2017-11-14 15:10 | General Progress Note ---
Progress Note Progress Note Surgery: looks good. states he feels much better. pain better than prior. no n/v/f/c. comfortable. ambulatory labs okay. overall improved -clear liquids -ambulate and out of bed -rx as written IV Abx thank you Chris Porter Nov 14, 2017 15:10
[2017-11-14 16:00] VITALS: BP 128/76
[2017-11-14] MEDS ORDERED: cefTRIAXone 1 GM in D5W 110 ML IVPB SCH (16:30)
--- NOTE | 2017-11-14 18:00 | Operative Note - Dictated ---
DATE OF OPERATION: 11/14/2017 PREOPERATIVE DIAGNOSIS: Acute cholecystitis. POSTOPERATIVE DIAGNOSIS: Acute gangrenous hemorrhagic cholecystitis. PROCEDURE PERFORMED: Diagnostic laparoscopy converted to open cholecystectomy. SURGEON: Chris Porter M.D. AUTOMOTIVE PROJECT ENGINEER: None. ANESTHESIOLOGIST: Bev Wheeler M.D. ANESTHESIA: General MANAGER OF SELECTION AND ASSESSMENT. ESTIMATED BLOOD LOSS: 500 mL. IV FLUIDS: Please see anesthesia records. COMPLICATIONS: None. SPECIMENS: Gallbladder and stones sent to pathology for review. DRAINS: None. IMPLANTS: Surgicel and FloSeal. COUNTS: Sponge and needle count correct x2. WOUND CLASSIFICATION: Class 3. INDICATIONS FOR PROCEDURE: The patient is a 57-year-old male, who presented to the emergency room with worsening generalized abdominal pain with focal right upper quadrant peritonitis that has been worsening over the last few days. The patient was in moderate discomfort and noted to have a leukocytosis, positive Hanley sign, and CT scan with concerning abnormal appearing gallbladder containing large stones, moderate dense material filling the gallbladder lumen, and pericholecystic fat infiltration, as well as blood appearing intraperitoneal fluid concerning for gallbladder wall hemorrhage. Given the above findings, this surgery was indicated and recommended. Risks, benefits, and alternatives were discussed with the patient in detail, who expressed understanding and consented to surgery. OPERATIVE NOTE: The patient was taken to the operating room, placed on the operative table in supine position with bilateral arms out. All bony prominences were well padded. SCDs were placed. Preoperative time-out was taken in identifying the patient, procedure, operative staff, and surgical staff. IV antibiotics were given one hour prior to cut time. General anesthesia was induced and the patient was intubated. The abdomen was then clipped, prepped, and draped in standard surgical fashion. An infraumbilical incision was made after local anesthetic was infiltrated and carried down to the fascia, which was elevated and incised. Entry into the abdomen was confirmed using the open Maddy technique without complication. A 12 mm Maddy trocar was inserted and the abdomen was insufflated to 12 to 15 mmHg. The patient tolerated the insufflation well. The patient was placed in reverse Trendelenburg with left side down position. A camera was inserted and the abdomen was inspected. There was gross hemoperitoneum noted in the right upper quadrant and pelvis with some blood clots draping over the omentum on the right side. At this time, secondary trocars were placed, beginning with a 12 mm subxiphoid port followed by a 5 mm midclavicular subcostal port. Both were placed under direct visualization without complication. At this time, we used to suction out the hemoperitoneum. Following this, the omental adhesions draped over the gallbladder were dissected down using blunt dissection and electrocautery as necessary. Following this, gallbladder was identified and noted to be distended and firm. There were areas of gangrene in the dome of the gallbladder what likely seemed to be hemorrhagic perforation. Laparoscopic graspers were used in attempts to grasp the gallbladder and elevator of the liver, but unfortunately, the gallbladder was fairly diseased and upon any manipulation of the gallbladder using graspers, the gallbladder would perforate and small caviar type stones would evacuate as well as some blood clots. These were suctioned out and retrieved. Following this, decision was made given that the gallbladder was significantly diseased and unable to be manipulated laparoscopically without injury to convert to open. The 12 mm trocar and laparoscope were removed. The abdomen was desufflated. The subxiphoid and right upper quadrant subcostal port sites were connected using fresh skin knife and dissected down towards the fascia with electrocautery until the fascia and muscles were divided and entry into the abdomen was identified. Hemostasis was achieved with electrocautery and silk ties as necessary from the muscle. Following this, a Bookwalter retractor was placed and appropriate visualization of the gallbladder and liver were obtained. Given the gallbladder is already perforated and the large stones were extracted and were to be sent with the specimen. The gallbladder was taken off the liver bed using a top-down approach. There was a significant amount of bleeding identified and hemostasis was achieved. Once gallbladder was taken down to the level of the infundibulum, care was taken to identify the cystic artery and duct and circumferentially dissect them both. Once the cystic artery and duct were identified, a right angle was placed on both of them and the gallbladder was dissected free and sent to pathology with the stones for review. The cystic duct and artery were ligated using 2-0 silk ties and surgical clips. Following this, the hemostasis was achieved with electrocautery and direct pressure. The right upper quadrant of the abdomen was irrigated and suctioned until clear. All stones were retrieved and sent to pathology with specimens. At this time, no other abnormalities or injuries were noted. The liver was fairly large and boggy with blunted edges. Hemostasis was achieved. At the end of the procedure, FloSeal and Surgicel were placed in the liver bed. The cystic duct and artery were identified and noted to be without leak or bleeding. The remainder of the abdomen was fairly dry at the end of the procedure. Decision at this time was made not to leave a drain given that the FloSeal and the Surgicel would likely clog the drain. Once hemostasis was identified, the retractors were removed and the bowel was allowed to be placed into its anatomical position. We began our closure beginning with two-layer closure, the posterior rectus sheath with a #0 looped PDS suture followed by the anterior rectus sheath in a similar running fashion. The wound was then irrigated and the skin incision was closed using surgical cordell. The patient tolerated the procedure well, was extubated, and taken to postanesthesia care unit in stable condition. Chris Porter M.D. DR: NARGIS JOB#: [id number] CC: JENN
[2017-11-14 20:00] VITALS: BP 139/63
[2017-11-14] MEDS ORDERED: ENALAPRIL MALEA10 MG ORAL (20:30)
[2017-11-15] VITALS (7 sets, daily range): BP systolic 125–179; BP diastolic 69–79
[2017-11-15] MEDS: HYDROcodone/Acetamin 10/325 tab ORAL PRN ×2 (02:00→23:02)
[2017-11-15] MEDS: D5 1/2NS w/KCl 20mEq 1,000 ML IV SCH ×3 (06:03→19:17)
[2017-11-15 06:26] LABS: BASOPHILS % (AUTO) 0.8 % (0.0-2.0); EOSINOPHILS % (AUTO) 3.2 % (0.0-3.0); HEMATOCRIT 33.5 % (42.0-52.0); HEMOGLOBIN 10.9 G/DL (14.2-18.0); LYMPHOCYTES % (AUTO) 7.6 % (20.0-45.0); MEAN CORPUSCULAR VOLUME 81 FL (80-99); MONOCYTES % (AUTO) 7.8 % (1.0-10.0); NEUTROPHILS % (AUTO) 80.7 % (45.0-75.0); PLATELET COUNT 226 K/UL (150-450); RED BLOOD COUNT 4.13 M/UL (4.70-6.10); RED CELL DISTRIBUTION WIDTH 12.4 % (11.6-14.8); WHITE BLOOD COUNT 15.5 K/UL (4.8-10.8)
[2017-11-15 07:05] LABS: ALANINE AMINOTRANSFERASE 104 U/L (12-78); ALBUMIN 2.2 G/DL (3.4-5.0); ALBUMIN/GLOBULIN RATIO 0.6 (1.0-2.7); ALKALINE PHOSPHATASE 89 U/L (46-116); ANION GAP 7 mmol/L (5-15); ASPARTATE AMINO TRANSFERASE 73 U/L (15-37); BILIRUBIN,TOTAL 1.1 MG/DL (0.2-1.0); BLOOD UREA NITROGEN 31 mg/dL (7-18); CALCIUM 7.7 MG/DL (8.5-10.1); CARBON DIOXIDE 24 MMOL/L (21-32); CHLORIDE 101 MMOL/L (98-107); CREATININE 2.1 MG/DL (0.55-1.30); POTASSIUM 4.6 MMOL/L (3.5-5.1); SODIUM 132 MMOL/L (136-145)
[2017-11-15 07:07] LABS: BILIRUBIN,DIRECT 0.5 MG/DL (0.0-0.3)
[2017-11-15] MEDS: Docusate 100mg cap ORAL SCH ×2 (08:42→17:21)
--- NOTE | 2017-11-15 13:34 | Infectious Diseases Prog Note ---
Assessment/Plan Assessment/Plan Full consult dictated: A) 1) acute gangrenous cholecystitis, sepsis, leukocytosis, fevers, [place] 2) s/p open cholecystectomy 3) allergies - nkda P) 1) zosyn and flagyl 2) check labs, cultures 3) thank you Subjective Allergies: Coded Allergies: No Known Allergies (Unverified , 11/13/17) Objective Vital Signs Last 24 Hour Vital Signs Date Time Temp Pulse Resp B/P (MAP) Pulse Ox O2 Delivery O2 Flow Rate FiO2 11/15/17 12:50 89 159/79 11/15/17 12:00 98.7 89 20 159/79 96 98.7 11/15/17 08:00 99.1 91 18 149/74 91 Room Air 99.1 11/15/17 04:00 100.0 104 18 125/69 93 Room Air 100.0 11/15/17 00:00 99.0 99 18 135/69 96 Room Air 99.0 11/14/17 20:00 99.4 92 18 139/63 93 Room Air 99.4 11/14/17 18:29 98.1 11/14/17 17:30 98.1 11/14/17 16:00 98.1 92 20 128/76 100 Room Air 98.1 Height (Feet): 5 Height (Inches): 9.00 Weight (Pounds): 220 Laboratory Tests Test 11/15/17 05:20 White Blood Count 15.5 K/UL (4.8-10.8) H Red Blood Count 4.13 M/UL (4.70-6.10) L Hemoglobin 10.9 G/DL (14.2-18.0) L Hematocrit 33.5 % (42.0-52.0) L Mean Corpuscular Volume 81 FL (80-99) Mean Corpuscular Hemoglobin 26.5 PG (27.0-31.0) L Mean Corpuscular Hemoglobin Concent 32.6 G/DL (32.0-36.0) Red Cell Distribution Width 12.4 % (11.6-14.8) Platelet Count 226 K/UL (150-450) Mean Platelet Volume 6.2 FL (6.5-10.1) L Neutrophils (%) (Auto) 80.7 % (45.0-75.0) H Lymphocytes (%) (Auto) 7.6 % (20.0-45.0) L Monocytes (%) (Auto) 7.8 % (1.0-10.0) Eosinophils (%) (Auto) 3.2 % (0.0-3.0) H Basophils (%) (Auto) 0.8 % (0.0-2.0) Sodium Level 132 MMOL/L (136-145) L Potassium Level 4.6 MMOL/L (3.5-5.1) Chloride Level 101 MMOL/L (98-107) Carbon Dioxide Level 24 MMOL/L (21-32) Anion Gap 7 mmol/L (5-15) Blood Urea Nitrogen 31 mg/dL (7-18) H Creatinine 2.1 MG/DL (0.55-1.30) H Estimat Glomerular Filtration Rate 32.5 mL/min (>60) Glucose Level 167 MG/DL (74-106) H Calcium Level 7.7 MG/DL (8.5-10.1) L Total Bilirubin 1.1 MG/DL (0.2-1.0) H Direct Bilirubin 0.5 MG/DL (0.0-0.3) H Aspartate Amino Transf (AST/SGOT) 73 U/L (15-37) H Alanine Aminotransferase (ALT/SGPT) 104 U/L (12-78) H Alkaline Phosphatase 89 U/L (46-116) Total Protein 5.9 G/DL (6.4-8.2) L Albumin 2.2 G/DL (3.4-5.0) L Globulin 3.7 g/dL Albumin/Globulin Ratio 0.6 (1.0-2.7) L Current Medications Medications (Trade) Dose Ordered Sig/Joel Route PRN Reason Start Time Stop Time Status Last Admin Dose Admin Acetaminophen (Tylenol) 650 mg Q6H PRN ORAL Mild Pain (Pain Scale 1-3) 11/13/17 22:31 12/13/17 22:30 Acetaminophen/ Hydrocodone Bitart ([place] 10/325) 1 tab Q4H PRN ORAL Severe Pain (Pain Scale 7-10) 11/13/17 22:31 11/20/17 22:30 11/15/17 02:00 Acetaminophen/ Hydrocodone Bitart ([place] 5/325) 1 tab Q4H PRN ORAL Moderate Pain (Pain Scale 4-6) 11/13/17 22:31 11/20/17 22:30 Al Hydroxide/Mg Hydroxide (Mylanta) 15 ml Q6H PRN ORAL DYSPEPSIA 11/13/17 22:31 12/13/17 22:30 Amlodipine Besylate (Norvasc) 5 mg DAILY ORAL 11/16/17 09:00 12/16/17 08:59 Amlodipine Besylate (Norvasc) 5 mg ONCE ORAL 11/15/17 13:00 11/15/17 14:00 11/15/17 12:50 Ceftriaxone Sodium 1 gm/ Dextrose 110 ml @ 220 mls/hr Q24H IVPB 11/14/17 16:30 11/21/17 16:29 11/14/17 17:30 Dextrose/ Electrolytes 1,000 ml @ 125 mls/hr Q8H IV 11/13/17 22:31 12/13/17 22:30 11/15/17 06:03 Diphenhydramine HCl (Benadryl) 12.5 mg Q6H PRN IVP Itching/Pruritis 11/13/17 22:30 12/13/17 22:29 Diphenhydramine HCl (Benadryl) 25 mg Q8H PRN ORAL Itching/Pruritis 11/13/17 22:30 12/13/17 22:29 Docusate Sodium (Colace) 100 mg TWICE A DAY ORAL 11/14/17 09:00 12/14/17 08:59 11/15/17 08:42 Magnesium Hydroxide (Mom) 30 ml BIDPRN PRN ORAL Constipation 11/13/17 22:31 12/13/17 22:30 Metoclopramide HCl (Reglan) 10 mg Q6H PRN IVP Nausea & Vomiting 11/13/17 22:30 12/13/17 22:29 Metronidazole 100 ml @ 100 mls/hr Q6HR IVPB 11/14/17 18:00 11/21/17 17:59 11/15/17 11:28 Morphine Sulfate (Morphine Sulfate) 4 mg Q2H PRN IVP Severe Pain (Pain Scale 7-10) 11/13/17 22:31 11/20/17 22:30 Ondansetron HCl (Zofran) 4 mg Q6H PRN IVP Nausea & Vomiting 11/13/17 22:31 12/13/17 22:30 Zolpidem Tartrate (Ambien) 5 mg DAILYPRN PRN ORAL Insomnia 11/13/17 22:31 11/20/17 22:30 Kimberley Frederick MD Nov 15, 2017 13:34
--- NOTE | 2017-11-15 14:07 | Consultation ---
Consult Note Assessment/Plan Renal consult dictated # [id number] Stevie Carney MD Nov 15, 2017 14:07
--- NOTE | 2017-11-15 14:28 | Consultation ---
History of Present Illness General Date patient seen: Nov 15, 2017 Chief Complaint: Abdominal Pain Reason for Consultation: abdominal pain Present Illness HPI 57 year old mle with HTN, obesity, ex smoker, presented with abdominal pain. Was diagnosed to have cholecystitis and underwent cholecystectomy. I was asked by Dr. Mcnair to evaluate his dyspnea. Pt is sitting up on the bed. In no acute distress. his pain is controlled. Allergies: Coded Allergies: No Known Allergies (Unverified , 11/13/17) Medication History Scheduled Enalapril Maleate* (Enalapril Maleate*), 10 MG ORAL DAILY, (Reported) Miscellaneous Medications Unable to Obtain Medications (Unable To Obtain Meds), (Reported) Patient History Healthcare decision maker N Resuscitation status Full Code Advanced Directive on File Past Medical/Surgical History Past Medical/Surgical History: (1) HTN (hypertension) Review of Systems All Other Systems: negative except mentioned in HPI Physical Exam General Appearance: WD/WN Lines, tubes and drains: peripheral HEENT: normocephalic, atraumatic Neck: non-tender, normal alignment Respiratory/Chest: chest wall non-tender, lungs clear Cardiovascular/Chest: normal rate Abdomen: normal bowel sounds Extremities: normal range of motion Last 24 Hour Vital Signs Date Time Temp Pulse Resp B/P (MAP) Pulse Ox O2 Delivery O2 Flow Rate FiO2 11/15/17 12:50 89 159/79 11/15/17 12:00 98.7 89 20 159/79 96 98.7 11/15/17 08:00 99.1 91 18 149/74 91 Room Air 99.1 11/15/17 04:00 100.0 104 18 125/69 93 Room Air 100.0 11/15/17 00:00 99.0 99 18 135/69 96 Room Air 99.0 11/14/17 20:00 99.4 92 18 139/63 93 Room Air 99.4 11/14/17 18:29 98.1 11/14/17 17:30 98.1 11/14/17 16:00 98.1 92 20 128/76 100 Room Air 98.1 Intake and Output 11/14/17 11/15/17 19:00 07:00 Intake Total 1390 ml 1500 ml Output Total 300 ml Balance 1090 ml 1500 ml Intake Oral 480 ml 300 ml IV Total 910 ml 1200 ml Output Urine Total 300 ml # Voids 1 2 Laboratory Tests Test 11/15/17 05:20 White Blood Count 15.5 K/UL (4.8-10.8) H Red Blood Count 4.13 M/UL (4.70-6.10) L Hemoglobin 10.9 G/DL (14.2-18.0) L Hematocrit 33.5 % (42.0-52.0) L Mean Corpuscular Volume 81 FL (80-99) Mean Corpuscular Hemoglobin 26.5 PG (27.0-31.0) L Mean Corpuscular Hemoglobin Concent 32.6 G/DL (32.0-36.0) Red Cell Distribution Width 12.4 % (11.6-14.8) Platelet Count 226 K/UL (150-450) Mean Platelet Volume 6.2 FL (6.5-10.1) L Neutrophils (%) (Auto) 80.7 % (45.0-75.0) H Lymphocytes (%) (Auto) 7.6 % (20.0-45.0) L Monocytes (%) (Auto) 7.8 % (1.0-10.0) Eosinophils (%) (Auto) 3.2 % (0.0-3.0) H Basophils (%) (Auto) 0.8 % (0.0-2.0) Sodium Level 132 MMOL/L (136-145) L Potassium Level 4.6 MMOL/L (3.5-5.1) Chloride Level 101 MMOL/L (98-107) Carbon Dioxide Level 24 MMOL/L (21-32) Anion Gap 7 mmol/L (5-15) Blood Urea Nitrogen 31 mg/dL (7-18) H Creatinine 2.1 MG/DL (0.55-1.30) H Estimat Glomerular Filtration Rate 32.5 mL/min (>60) Glucose Level 167 MG/DL (74-106) H Calcium Level 7.7 MG/DL (8.5-10.1) L Total Bilirubin 1.1 MG/DL (0.2-1.0) H Direct Bilirubin 0.5 MG/DL (0.0-0.3) H Aspartate Amino Transf (AST/SGOT) 73 U/L (15-37) H Alanine Aminotransferase (ALT/SGPT) 104 U/L (12-78) H Alkaline Phosphatase 89 U/L (46-116) Total Protein 5.9 G/DL (6.4-8.2) L Albumin 2.2 G/DL (3.4-5.0) L Globulin 3.7 g/dL Albumin/Globulin Ratio 0.6 (1.0-2.7) L Height (Feet): 5 Height (Inches): 9.00 Weight (Pounds): 220 Medications Current Medications Medications (Trade) Dose Ordered Sig/Joel Route PRN Reason Start Time Stop Time Status Last Admin Dose Admin Acetaminophen (Tylenol) 650 mg Q6H PRN ORAL Mild Pain (Pain Scale 1-3) 11/13/17 22:31 12/13/17 22:30 Acetaminophen/ Hydrocodone Bitart ([place] 10/325) 1 tab Q4H PRN ORAL Severe Pain (Pain Scale 7-10) 11/13/17 22:31 11/20/17 22:30 11/15/17 02:00 Acetaminophen/ Hydrocodone Bitart ([place] 5/325) 1 tab Q4H PRN ORAL Moderate Pain (Pain Scale 4-6) 11/13/17 22:31 11/20/17 22:30 Al Hydroxide/Mg Hydroxide (Mylanta) 15 ml Q6H PRN ORAL DYSPEPSIA 11/13/17 22:31 12/13/17 22:30 Amlodipine Besylate (Norvasc) 5 mg DAILY ORAL 11/16/17 09:00 12/16/17 08:59 Dextrose/ Electrolytes 1,000 ml @ 75 mls/hr [id number] IV 11/15/17 22:31 12/13/17 22:30 UNV Diphenhydramine HCl (Benadryl) 12.5 mg Q6H PRN IVP Itching/Pruritis 11/13/17 22:30 12/13/17 22:29 Diphenhydramine HCl (Benadryl) 25 mg Q8H PRN ORAL Itching/Pruritis 11/13/17 22:30 12/13/17 22:29 Docusate Sodium (Colace) 100 mg TWICE A DAY ORAL 11/14/17 09:00 12/14/17 08:59 11/15/17 08:42 Magnesium Hydroxide (Mom) 30 ml BIDPRN PRN ORAL Constipation 11/13/17 22:31 12/13/17 22:30 Metoclopramide HCl (Reglan) 10 mg Q6H PRN IVP Nausea & Vomiting 11/13/17 22:30 12/13/17 22:29 Metronidazole 100 ml @ 100 mls/hr Q8H IVPB 11/15/17 20:00 11/22/17 19:59 Morphine Sulfate (Morphine Sulfate) 4 mg Q2H PRN IVP Severe Pain (Pain Scale 7-10) 11/13/17 22:31 11/20/17 22:30 Ondansetron HCl (Zofran) 4 mg Q6H PRN IVP Nausea & Vomiting 11/13/17 22:31 12/13/17 22:30 Piperacillin Sod/ Tazobactam Sod 3.375 gm/Dextrose 100 ml @ 25 mls/hr EVERY 8 HOURS IVPB 11/15/17 14:00 11/20/17 13:59 11/15/17 13:51 Zolpidem Tartrate (Ambien) 5 mg DAILYPRN PRN ORAL Insomnia 11/13/17 22:31 11/20/17 22:30 Assessment/Plan Problem List: (1) Dyspnea ICD Codes: R06.00 - Dyspnea, unspecified SNOMED: 820746663 (2) Morbid obesity ICD Codes: E66.01 - Morbid (severe) obesity due to excess calories SNOMED: 719792541 (3) Ex-smoker ICD Codes: Z87.891 - Personal history of nicotine dependence SNOMED: 6119261 Assessment/Plan respiratory treatment titrate fio2 to sat of 92% continue abx dvt prophylaxis. Jeanne Martin MD Nov 15, 2017 14:28
--- NOTE | 2017-11-15 14:29 | General Progress Note ---
Progress Note Progress Note Surgery: states that he feels better. no n/v/f/c. tolerating clears. ambulatory. wound c/d/i. abdomen soft, distended, incisional tenderness. leukocytosis. renal function worse today. 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 Chris Porter Nov 15, 2017 14:29
[2017-11-15] MEDS ORDERED: Tubing IV Secondary IV ONE (15:59)
--- NOTE | 2017-11-15 15:59 | General Progress Note ---
Assessment/Plan Problem List: (1) FRANKLIN (acute kidney injury) ICD Codes: N17.9 - Acute kidney failure, unspecified SNOMED: 02698477 (2) HTN (hypertension) ICD Codes: I10 - Essential (primary) hypertension SNOMED: 74104493 (3) Sepsis ICD Codes: A41.9 - Sepsis, unspecified organism SNOMED: 02034396 (4) Acute cholecystitis ICD Codes: K81.0 - Acute cholecystitis SNOMED: 07330663 Status: stable Assessment/Plan - General surgery consulted, appreciate rec's - Nephrology consulted for FRANKLIN - ID consulted for worsening sepsis, appreciate rec's - s/p open cholecystectomy, POD#2 - continue IV zosyn and flagyl per ID (11/15 -) - check blood cultures, UA, CXR for uptrending WBC - IVF - CLD and ADAT - Trend Cr, uptrending - start norvasc 5 - hydralazine 25mg q6hr prn SBP > 160 - pain control and supportive care - Hold home enalapril given FRANKLIN - PT/OT - educate on nutrition given s/p cholecystectomy (i.e. low fat foods) DVT Prophylaxis: SCD Code Status: Full Hospital Classification Declaration: Based on this initial evaluation, and depending on the patient's clinical course, I anticipate that this patient will require hospitalization for 2-3 days for acute cholecystitis and close respiratory/hemodynamic monitoring. Disposition: Once the patient is stable to leave the hospital, I anticipate the patient will likely be discharged to the following environment: home with HH I spent 33 minutes on this patient's case, and 23 minutes were dedicated to counseling and/or care coordination. Discussed with patient/family, nursing staff, SW/CM, ID, nephrology, general surgery regarding clinical status, treatment course, and disposition planning. Time of note may not reflect time of encounter. Subjective Date patient seen: Nov 15, 2017 Time patient seen: 15:56 Allergies: Coded Allergies: No Known Allergies (Unverified , 11/13/17) Subjective - last night had temp of 100, WBC uptrending, Cr worsening - tolerating clears. no n/v. reports abdominal pain to incisional site - BP elevated today to systolic 160s - denies cp, sob Objective Last 24 Hour Vital Signs Date Time Temp Pulse Resp B/P (MAP) Pulse Ox O2 Delivery O2 Flow Rate FiO2 11/15/17 12:50 89 159/79 11/15/17 12:00 98.7 89 20 159/79 96 98.7 11/15/17 08:00 99.1 91 18 149/74 91 Room Air 99.1 11/15/17 04:00 100.0 104 18 125/69 93 Room Air 100.0 11/15/17 00:00 99.0 99 18 135/69 96 Room Air 99.0 11/14/17 20:00 99.4 92 18 139/63 93 Room Air 99.4 11/14/17 18:29 98.1 11/14/17 17:30 98.1 11/14/17 16:00 98.1 92 20 128/76 100 Room Air 98.1 Intake and Output 11/14/17 11/15/17 19:00 07:00 Intake Total 1390 ml 1500 ml Output Total 300 ml Balance 1090 ml 1500 ml Intake Oral 480 ml 300 ml IV Total 910 ml 1200 ml Output Urine Total 300 ml # Voids 1 2 Laboratory Tests 11/15/17 05:20: White Blood Count 15.5H, Red Blood Count 4.13L, Hemoglobin 10.9L, Hematocrit 33.5L, Mean Corpuscular Volume 81, Mean Corpuscular Hemoglobin 26.5L, Mean Corpuscular Hemoglobin Concent 32.6, Red Cell Distribution Width 12.4, Platelet Count 226, Mean Platelet Volume 6.2L, Neutrophils (%) (Auto) 80.7H, Lymphocytes (%) (Auto) 7.6L, Monocytes (%) (Auto) 7.8, Eosinophils (%) (Auto) 3.2H, Basophils (%) (Auto) 0.8, Sodium Level 132L, Potassium Level 4.6, Chloride Level 101, Carbon Dioxide Level 24, Anion Gap 7, Blood Urea Nitrogen 31H, Creatinine 2.1H, Estimat Glomerular Filtration Rate 32.5, Glucose Level 167H, Calcium Level 7.7L, Total Bilirubin 1.1H, Direct Bilirubin 0.5H, Aspartate Amino Transf (AST/SGOT) 73H, Alanine Aminotransferase (ALT/SGPT) 104H, Alkaline Phosphatase 89, Total Protein 5.9L, Albumin 2.2L, Globulin 3.7, Albumin/ Globulin Ratio 0.6L Height (Feet): 5 Height (Inches): 9.00 Weight (Pounds): 220 General Appearance: no apparent distress, alert EENT: PERRL/EOMI, normal ENT inspection Neck: non-tender, normal alignment, supple Cardiovascular: normal peripheral pulses, normal rate, regular rhythm Respiratory/Chest: chest wall non-tender, lungs clear, normal breath sounds Abdomen: normal bowel sounds, non tender, soft, distended, other - surgical incisions c/d/i Extremities: normal range of motion, non-tender 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
[2017-11-15] MEDS: HydrALAZINE 25mg tab ORAL PRN (16:03)
--- NOTE | 2017-11-15 17:35 | Diagnostic Imaging Report ---
Indication: Cough Technique: One view of the chest Comparison: none Findings: The heart is enlarged. Atelectasis is seen in the left midlung periphery. Possible sliver of lucency is seen under the right hemidiaphragm, consistent with postoperative pneumoperitoneum. Lungs and pleural spaces are otherwise clear. Impression: No acute process Minimal atelectasis on the left Cardiomegaly Minimal postoperative pneumoperitoneum
[2017-11-15 17:48] LABS: APPEARANCE,URINE CLEAR; BILIRUBIN, URINE NEGATIVE (NEGATIVE); GLUCOSE, URINE (UA) NEGATIVE (NEGATIVE); KETONES,URINE NEGATIVE (NEGATIVE); LEUKOCYTE ESTERASE ,URINE 1+ (NEGATIVE); NITRITE,URINE NEGATIVE (NEGATIVE); PH,URINE 5 (4.5-8.0); PROTEIN,URINE 4+ (NEGATIVE); UROBILINOGEN,URINE NORMAL MG/DL (0.0-1.0)
[2017-11-15 17:49] LABS: COLOR,URINE YELLOW
--- NOTE | 2017-11-15 18:30 | Consultation ---
DATE OF CONSULTATION: 11/15/2017 NEPHROLOGY CONSULTATION CONSULTING PHYSICIAN: Stevie Carney M.D. REFERRING PHYSICIAN: Chris Porter M.D. REASON FOR CONSULTATION: Renal failure. HISTORY OF PRESENT ILLNESS: This is a 57-year-old male, who was admitted with abdominal pain, diagnosed with acute cholecystitis. The patient underwent cholecystectomy. Dr. Gil was called to see the patient in Nephrology consultation because he has a rise in serum creatinine and I am covering for him today. As of 11/13/2017, the BUN was 20 and creatinine 1.6. As of today, the BUN is 31 and creatinine of 2.1. The patient had also UA done, which showed 4+ protein. According to the patient, the patient was diagnosed with some kind of kidney disease, but he does not know the details. PAST MEDICAL HISTORY: He has history of hypertension for the past 5 years taking medications. MEDICATIONS: Reviewed in the EMR. ALLERGIES: No known drug allergies. SOCIAL HISTORY: The patient works for [email or web address]. No history of smoking or alcohol abuse. He lives at home by himself. REVIEW OF SYSTEMS: Noncontributory. PHYSICAL EXAMINATION: GENERAL: The patient is a 57-year-old male, in no acute distress. VITAL SIGNS: Blood pressure 159/79, pulse 89, temperature 99.1, and respirations 18. HEENT: Flowella conjunctivae. Anicteric sclerae. NECK: Supple. LUNGS: Clear to auscultation. HEART: S1, S2 without murmurs or rubs. ABDOMEN: Soft and distended. EXTREMITIES: Bilateral pedal edema. LABORATORY FINDINGS: The CBC shows a WBC of 16.5, hematocrit is 33.5, hemoglobin is 10.9, and platelets 226,000. The chemistry panel shows serum sodium 132, potassium 4.6, chloride 101, CO2 24, BUN is 31, and creatinine 2.1. Blood sugar is 167 and calcium 7.7. ASSESSMENT: This is a 57-year-old male, who was admitted with abdominal pain, diagnosed with acute cholecystitis, status post cholecystectomy. In terms of his renal function, it appears that he has acute on chronic renal failure. He has 4+ protein in the urine, which is most consistent with chronic kidney disease. It is unclear what the etiology of chronic kidney disease is. He has had pneumonia and five years of hypertension, which should not cause chronic kidney disease unless it was undiagnosed for longer time. Also, indeed the patient has significant proteinuria i.e., nephrotic range, other etiologies besides hypertension needs to be looked for. In terms of his acute renal failure, likely he has some acute tubular necrosis from the volume depletion and sepsis. PLAN: I would keep the patient hydrated. Urine studies will be done again to confirm the proteinuria. Chemistry panel will be followed closely. Further recommendations will be given based on those results. Stevie Carney M.D. DR: FADI JOB#: [id number] CC:
[2017-11-16] VITALS (7 sets, daily range): BP systolic 129–169; BP diastolic 68–75
[2017-11-16] MEDS: HydrALAZINE 25mg tab ORAL PRN (00:17)
[2017-11-16] MEDS: D5 1/2NS w/KCl 20mEq 1,000 ML IV SCH (04:21)
[2017-11-16] MEDS: Docusate 100mg cap ORAL SCH ×2 (08:39→17:17)
[2017-11-16 09:36] LABS: BASOPHILS % (AUTO) 0.9 % (0.0-2.0); EOSINOPHILS % (AUTO) 6.3 % (0.0-3.0); HEMATOCRIT 32.3 % (42.0-52.0); HEMOGLOBIN 10.2 G/DL (14.2-18.0); LYMPHOCYTES % (AUTO) 11.6 % (20.0-45.0); MEAN CORPUSCULAR VOLUME 82 FL (80-99); MONOCYTES % (AUTO) 8.5 % (1.0-10.0); NEUTROPHILS % (AUTO) 72.7 % (45.0-75.0); PLATELET COUNT 259 K/UL (150-450); RED BLOOD COUNT 3.95 M/UL (4.70-6.10); RED CELL DISTRIBUTION WIDTH 12.3 % (11.6-14.8); WHITE BLOOD COUNT 13.1 K/UL (4.8-10.8)
[2017-11-16 09:54] LABS: PHOSPHORUS 3.2 MG/DL (2.5-4.9)
[2017-11-16 09:57] LABS: ALANINE AMINOTRANSFERASE 66 U/L (12-78); ALBUMIN 2.1 G/DL (3.4-5.0); ALBUMIN/GLOBULIN RATIO 0.5 (1.0-2.7); ALKALINE PHOSPHATASE 84 U/L (46-116); ANION GAP 8 mmol/L (5-15); ASPARTATE AMINO TRANSFERASE 41 U/L (15-37); BILIRUBIN,TOTAL 0.9 MG/DL (0.2-1.0); BLOOD UREA NITROGEN 27 mg/dL (7-18); CARBON DIOXIDE 25 MMOL/L (21-32); CHLORIDE 101 MMOL/L (98-107); CREATININE 1.7 MG/DL (0.55-1.30); POTASSIUM 4.3 MMOL/L (3.5-5.1); SODIUM 134 MMOL/L (136-145)
--- NOTE | 2017-11-16 12:20 | Cardiology Report ---
APPROVED REPORT EKG Measurement Heart [id number] Normal sinus rhythm Possible Left atrial enlargement Left ventricular hypertrophy with repolarization abnormality Prolonged QT Abnormal ECG
--- NOTE | 2017-11-16 12:57 | Nephrology Progress Note ---
Assessment/Plan Problem List: (1) CKD (chronic kidney disease) (2) HTN (hypertension) (3) FRANKLIN (acute kidney injury) (4) Acute cholecystitis Plan 24 hrs for protein and creatinine follow BMP Dc IVF Subjective Subjective ok Objective Objective Last 24 Hour Vital Signs Date Time Temp Pulse Resp B/P (MAP) Pulse Ox O2 Delivery O2 Flow Rate FiO2 11/16/17 08:47 98.2 79 18 163/72 98 Room Air 98.2 11/16/17 08:39 79 163/72 11/16/17 04:00 98.3 78 149/70 98.3 11/16/17 01:24 98.9 11/16/17 01:24 98.9 149/71 98.9 11/16/17 00:17 169/75 11/16/17 00:17 100.3 11/16/17 00:00 100.3 95 20 169/75 95 Room Air 100.3 11/15/17 20:00 100.2 102 20 163/76 95 Room Air 100.2 11/15/17 17:49 102 20 166/70 96 Room Air 11/15/17 16:03 175/75 11/15/17 16:00 97.5 85 20 179/75 97 Room Air 97.5 11/15/17 12:50 89 159/79 Intake and Output 11/15/17 11/16/17 19:00 07:00 Intake Total 1680.0 ml 965 ml Balance 1680.0 ml 965 ml Intake Oral 970 ml 240 ml IV Total 710.0 ml 725 ml # Voids 3 Laboratory Tests 11/15/17 17:15: Urine Color Yellow, Urine Appearance Clear, Urine pH 5, Urine Specific [place] 1.015, Urine Protein 4+H, Urine Glucose (UA) Negative, Urine Ketones Negative, Urine Occult Blood 3+H, Urine Nitrite Negative, Urine Bilirubin Negative, Urine Urobilinogen Normal, Urine Leukocyte Esterase 1+H, Urine RBC 2-4H, Urine WBC 0-2 , Urine Squamous Epithelial Cells None, Urine Amorphous Sediment FewH, Urine Bacteria Few 11/16/17 09:00: White Blood Count 13.1H, Red Blood Count 3.95L, Hemoglobin 10.2L, Hematocrit 32.3L, Mean Corpuscular Volume 82, Mean Corpuscular Hemoglobin 25.7L, Mean Corpuscular Hemoglobin Concent 31.5L, Red Cell Distribution Width 12.3, Platelet Count 259, Mean Platelet Volume 6.1L, Neutrophils (%) (Auto) 72.7, Lymphocytes (%) (Auto) 11.6L, Monocytes (%) (Auto) 8.5, Eosinophils (%) (Auto) 6.3H, Basophils (%) (Auto) 0.9, Sodium Level 134L, Potassium Level 4.3, Chloride Level 101, Carbon Dioxide Level 25, Anion Gap 8, Blood Urea Nitrogen 27H, Creatinine 1.7H, Estimat Glomerular Filtration Rate 41.5, Glucose Level 166H, Hemoglobin A1c 5.9, Calcium Level 8.0L, Phosphorus Level 3.2, Total Bilirubin 0.9, Aspartate Amino Transf (AST/SGOT) 41H, Alanine Aminotransferase ( ALT/SGPT) 66, Alkaline Phosphatase 84, Total Protein 6.0L, Albumin 2.1L, Globulin 3.9, Albumin/Globulin Ratio 0.5L Height (Feet): 5 Height (Inches): 9.00 Weight (Pounds): 220 Cardiovascular: normal rate Respiratory/Chest: lungs clear Extremities: other - no edema Stevie Carney MD Nov 16, 2017 12:57
--- NOTE | 2017-11-16 14:07 | General Progress Note ---
Progress Note Progress Note Surgery: overall improving. no n/v/f/c. tolerating diet. ambulatory. +flatus +BM exam benign. wound c/d/i -diet as tolerated -IV abx -AM labs. Chris Porter Nov 16, 2017 14:07
[2017-11-16] MEDS ORDERED: NS 500ML ONE (14:13)
--- NOTE | 2017-11-16 15:24 | General Progress Note ---
Assessment/Plan Problem List: (1) FRANKLNI (acute kidney injury) ICD Codes: N17.9 - Acute kidney failure, unspecified SNOMED: 60536818 (2) HTN (hypertension) ICD Codes: I10 - Essential (primary) hypertension SNOMED: 43514864 (3) Sepsis ICD Codes: A41.9 - Sepsis, unspecified organism SNOMED: 01983994 (4) Acute cholecystitis ICD Codes: K81.0 - Acute cholecystitis SNOMED: 30109981 Status: stable, progressing Assessment/Plan - General surgery consulted, appreciate rec's - Nephrology consulted for FRANKLIN, appreciate rec's - ID consulted for worsening sepsis, appreciate rec's - s/p open cholecystectomy, POD#3 - continue IV zosyn per ID (11/15 -) - check blood cultures, UA, CXR negative - IVF - ADAT - Trend Cr, downtrending - increase norvasc to 10mg qd - hydralazine 25mg q6hr prn SBP > 160 - pain control and supportive care - Hold home enalapril given FRANKLIN - PT/OT - educate on nutrition given s/p cholecystectomy (i.e. low fat foods) DVT Prophylaxis: SCD Code Status: Full Hospital Classification Declaration: Based on this initial evaluation, and depending on the patient's clinical course, I anticipate that this patient will require hospitalization for 2-3 days for acute cholecystitis and close respiratory/hemodynamic monitoring. Disposition: Once the patient is stable to leave the hospital, I anticipate the patient will likely be discharged to the following environment: home with HH I spent 30 minutes on this patient's case, and 23 minutes were dedicated to counseling and/or care coordination. Discussed with patient/family, nursing staff, SW/CM, ID, nephrology, general surgery regarding clinical status, treatment course, and disposition planning. Time of note may not reflect time of encounter. Subjective Date patient seen: Nov 16, 2017 Time patient seen: 15:16 Allergies: Coded Allergies: No Known Allergies (Unverified , 11/13/17) Subjective - afebrile, BP elevated to systolic 160s - reports flatus and small bowel movement - reports abdominal pain well controlled. reports intermittent nausea but no vomiting. Denies cp, sob - ambulating well - WBC downtrending, Cr downtrending Objective Last 24 Hour Vital Signs Date Time Temp Pulse Resp B/P (MAP) Pulse Ox O2 Delivery O2 Flow Rate FiO2 11/16/17 12:00 98.1 78 18 148/71 98 Room Air 98.1 11/16/17 08:47 98.2 79 18 163/72 98 Room Air 98.2 11/16/17 08:39 79 163/72 11/16/17 04:00 98.3 78 149/70 98.3 11/16/17 01:24 98.9 11/16/17 01:24 98.9 149/71 98.9 11/16/17 00:17 169/75 11/16/17 00:17 100.3 11/16/17 00:00 100.3 95 20 169/75 95 Room Air 100.3 11/15/17 20:00 100.2 102 20 163/76 95 Room Air 100.2 11/15/17 17:49 102 20 166/70 96 Room Air 11/15/17 16:03 175/75 11/15/17 16:00 97.5 85 20 179/75 97 Room Air 97.5 Intake and Output 11/15/17 11/16/17 19:00 07:00 Intake Total 1680.0 ml 965 ml Balance 1680.0 ml 965 ml Intake Oral 970 ml 240 ml IV Total 710.0 ml 725 ml # Voids 3 Laboratory Tests 11/15/17 17:15: Urine Color Yellow, Urine Appearance Clear, Urine pH 5, Urine Specific [place] 1.015, Urine Protein 4+H, Urine Glucose (UA) Negative, Urine Ketones Negative, Urine Occult Blood 3+H, Urine Nitrite Negative, Urine Bilirubin Negative, Urine Urobilinogen Normal, Urine Leukocyte Esterase 1+H, Urine RBC 2-4H, Urine WBC 0-2 , Urine Squamous Epithelial Cells None, Urine Amorphous Sediment FewH, Urine Bacteria Few 11/16/17 09:00: White Blood Count 13.1H, Red Blood Count 3.95L, Hemoglobin 10.2L, Hematocrit 32.3L, Mean Corpuscular Volume 82, Mean Corpuscular Hemoglobin 25.7L, Mean Corpuscular Hemoglobin Concent 31.5L, Red Cell Distribution Width 12.3, Platelet Count 259, Mean Platelet Volume 6.1L, Neutrophils (%) (Auto) 72.7, Lymphocytes (%) (Auto) 11.6L, Monocytes (%) (Auto) 8.5, Eosinophils (%) (Auto) 6.3H, Basophils (%) (Auto) 0.9, Sodium Level 134L, Potassium Level 4.3, Chloride Level 101, Carbon Dioxide Level 25, Anion Gap 8, Blood Urea Nitrogen 27H, Creatinine 1.7H, Estimat Glomerular Filtration Rate 41.5, Glucose Level 166H, Hemoglobin A1c 5.9, Calcium Level 8.0L, Phosphorus Level 3.2, Total Bilirubin 0.9, Aspartate Amino Transf (AST/SGOT) 41H, Alanine Aminotransferase ( ALT/SGPT) 66, Alkaline Phosphatase 84, Total Protein 6.0L, Albumin 2.1L, Globulin 3.9, Albumin/Globulin Ratio 0.5L Height (Feet): 5 Height (Inches): 9.00 Weight (Pounds): 220 General Appearance: no apparent distress, alert EENT: PERRL/EOMI, normal ENT inspection Neck: non-tender, normal alignment, supple Respiratory/Chest: chest wall non-tender, lungs clear, normal breath sounds Abdomen: normal bowel sounds, non tender, soft, distended, other - surgical cordell c/d/i Extremities: normal range of motion, non-tender 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
--- NOTE | 2017-11-16 15:46 | Infectious Diseases Prog Note ---
Assessment/Plan Assessment/Plan A) 1) acute gangrenous cholecystitis, sepsis, leukocytosis, fevers, [place] 2) s/p open cholecystectomy 3) allergies - nkda P) 1) zosyn 2) check labs, cultures 3) d/w Rox Murphy NP Subjective Constitutional: Reports: fever HEENT: Denies: congestion Respiratory: Denies: shortness of breath Cardiovascular: Denies: chest pain Gastrointestinal/Abdominal: Denies: nausea, vomiting Neurologic: Denies: headache Psychiatric: Denies: depression Hematologic: Denies: bleeding Musculoskeletal: Denies: pain Allergies: Coded Allergies: No Known Allergies (Unverified , 11/13/17) Objective Vital Signs Last 24 Hour Vital Signs Date Time Temp Pulse Resp B/P (MAP) Pulse Ox O2 Delivery O2 Flow Rate FiO2 11/16/17 12:00 98.1 78 18 148/71 98 Room Air 98.1 11/16/17 08:47 98.2 79 18 163/72 98 Room Air 98.2 11/16/17 08:39 79 163/72 11/16/17 04:00 98.3 78 149/70 98.3 11/16/17 01:24 98.9 11/16/17 01:24 98.9 149/71 98.9 11/16/17 00:17 169/75 11/16/17 00:17 100.3 11/16/17 00:00 100.3 95 20 169/75 95 Room Air 100.3 11/15/17 20:00 100.2 102 20 163/76 95 Room Air 100.2 11/15/17 17:49 102 20 166/70 96 Room Air 11/15/17 16:03 175/75 11/15/17 16:00 97.5 85 20 179/75 97 Room Air 97.5 Height (Feet): 5 Height (Inches): 9.00 Weight (Pounds): 220 General Appearance: no acute distress HEENT: normocephalic, atraumatic, anicteric, mucous membranes moist Respiratory/Chest: no respiratory distress Cardiovascular: normal peripheral pulses, regular rhythm Abdomen: normal bowel sounds, soft, non tender Laboratory Tests Test 11/15/17 17:15 11/16/17 09:00 Urine Color Yellow Urine Appearance Clear Urine pH 5 (4.5-8.0) Urine Specific [place] 1.015 (1.005-1.035) Urine Protein 4+ (NEGATIVE) H Urine Glucose (UA) Negative (NEGATIVE) Urine Ketones Negative (NEGATIVE) Urine Occult Blood 3+ (NEGATIVE) H Urine Nitrite Negative (NEGATIVE) Urine Bilirubin Negative (NEGATIVE) Urine Urobilinogen Normal MG/DL (0.0-1.0) Urine Leukocyte Esterase 1+ (NEGATIVE) H Urine RBC 2-4 /HPF (0 - 0) H Urine WBC 0-2 /HPF (0 - 0) Urine Squamous Epithelial Cells None /LPF (NONE/OCC) Urine Amorphous Sediment Few /LPF (NONE) H Urine Bacteria Few /HPF (NONE) White Blood Count 13.1 K/UL (4.8-10.8) H Red Blood Count 3.95 M/UL (4.70-6.10) L Hemoglobin 10.2 G/DL (14.2-18.0) L Hematocrit 32.3 % (42.0-52.0) L Mean Corpuscular Volume 82 FL (80-99) Mean Corpuscular Hemoglobin 25.7 PG (27.0-31.0) L Mean Corpuscular Hemoglobin Concent 31.5 G/DL (32.0-36.0) L Red Cell Distribution Width 12.3 % (11.6-14.8) Platelet Count 259 K/UL (150-450) Mean Platelet Volume 6.1 FL (6.5-10.1) L Neutrophils (%) (Auto) 72.7 % (45.0-75.0) Lymphocytes (%) (Auto) 11.6 % (20.0-45.0) L Monocytes (%) (Auto) 8.5 % (1.0-10.0) Eosinophils (%) (Auto) 6.3 % (0.0-3.0) H Basophils (%) (Auto) 0.9 % (0.0-2.0) Sodium Level 134 MMOL/L (136-145) L Potassium Level 4.3 MMOL/L (3.5-5.1) Chloride Level 101 MMOL/L (98-107) Carbon Dioxide Level 25 MMOL/L (21-32) Anion Gap 8 mmol/L (5-15) Blood Urea Nitrogen 27 mg/dL (7-18) H Creatinine 1.7 MG/DL (0.55-1.30) H Estimat Glomerular Filtration Rate 41.5 mL/min (>60) Glucose Level 166 MG/DL (74-106) H Hemoglobin A1c 5.9 % (4.3-6.0) Calcium Level 8.0 MG/DL (8.5-10.1) L Phosphorus Level 3.2 MG/DL (2.5-4.9) Total Bilirubin 0.9 MG/DL (0.2-1.0) Aspartate Amino Transf (AST/SGOT) 41 U/L (15-37) H Alanine Aminotransferase (ALT/SGPT) 66 U/L (12-78) Alkaline Phosphatase 84 U/L (46-116) Total Protein 6.0 G/DL (6.4-8.2) L Albumin 2.1 G/DL (3.4-5.0) L Globulin 3.9 g/dL Albumin/Globulin Ratio 0.5 (1.0-2.7) L Current Medications Medications (Trade) Dose Ordered Sig/Joel Route PRN Reason Start Time Stop Time Status Last Admin Dose Admin Acetaminophen (Tylenol) 650 mg Q6H PRN ORAL Mild Pain (Pain Scale 1-3) 11/13/17 22:31 12/13/17 22:30 11/16/17 00:17 Acetaminophen/ Hydrocodone Bitart ([place] 10/325) 1 tab Q4H PRN ORAL Severe Pain (Pain Scale 7-10) 11/13/17 22:31 11/20/17 22:30 11/15/17 23:02 Acetaminophen/ Hydrocodone Bitart ([place] 5/325) 1 tab Q4H PRN ORAL Moderate Pain (Pain Scale 4-6) 11/13/17 22:31 11/20/17 22:30 Al Hydroxide/Mg Hydroxide (Mylanta) 15 ml Q6H PRN ORAL DYSPEPSIA 11/13/17 22:31 12/13/17 22:30 11/16/17 00:18 Amlodipine Besylate (Norvasc) 10 mg DAILY ORAL 11/17/17 09:00 12/17/17 08:59 Diphenhydramine HCl (Benadryl) 12.5 mg Q6H PRN IVP Itching/Pruritis 11/13/17 22:30 12/13/17 22:29 Diphenhydramine HCl (Benadryl) 25 mg Q8H PRN ORAL Itching/Pruritis 11/13/17 22:30 12/13/17 22:29 Docusate Sodium (Colace) 100 mg TWICE A DAY ORAL 11/14/17 09:00 12/14/17 08:59 11/16/17 08:39 Hydralazine HCl (Apresoline) 25 mg Q6H PRN ORAL SBP > 160 11/15/17 16:00 12/15/17 15:59 11/16/17 00:17 Magnesium Hydroxide (Mom) 30 ml BIDPRN PRN ORAL Constipation 11/13/17 22:31 12/13/17 22:30 11/16/17 09:54 Metoclopramide HCl (Reglan) 10 mg Q6H PRN IVP Nausea & Vomiting 11/13/17 22:30 12/13/17 22:29 Metronidazole 100 ml @ 100 mls/hr Q8H IVPB 11/15/17 20:00 11/22/17 19:59 11/16/17 12:22 Morphine Sulfate (Morphine Sulfate) 4 mg Q2H PRN IVP Severe Pain (Pain Scale 7-10) 11/13/17 22:31 11/20/17 22:30 Ondansetron HCl (Zofran) 4 mg Q6H PRN IVP Nausea & Vomiting 11/13/17 22:31 12/13/17 22:30 11/16/17 06:29 Piperacillin Sod/ Tazobactam Sod 3.375 gm/Dextrose 100 ml @ 25 mls/hr EVERY 8 HOURS IVPB 11/15/17 14:00 11/20/17 13:59 11/16/17 14:31 Zolpidem Tartrate (Ambien) 5 mg DAILYPRN PRN ORAL Insomnia 11/13/17 22:31 11/20/17 22:30 Kimberley Frederick MD Nov 16, 2017 15:46
--- NOTE | 2017-11-16 18:45 | Consultation ---
DATE OF CONSULTATION: 11/16/2017 INFECTIOUS DISEASE CONSULTATION CONSULTING PHYSICIAN: Kimberley Frederick M.D. ATTENDING PHYSICIAN: Chris Porter M.D. REFERRING PHYSICIAN: Celestino Celis M.D. Rox Murphy referred me this patient and is nurse-practitioner. REASON FOR CONSULTATION: Gangrenous cholecystitis with sepsis, fevers, and elevated white count. REASON FOR ADMISSION: Acute cholecystitis. HISTORY OF PRESENT ILLNESS: This is a very pleasant 57-year-old male who comes in to [facility] with abdominal pain in the right upper quadrant. The patient had a CT scan of the abdomen and pelvis which showed findings suggestive of cholecystitis. It showed gallstones and infiltration of the pericholecystic fat. The patient went to surgery and upon reviewing the operative note had acute cholecystitis that turned out to be acute gangrenous hemorrhagic cholecystitis and a diagnostic laparoscopy was converted to open cholecystectomy. Because of the fevers, elevated white count, and possible sepsis in addition to cholecystitis, Infectious Disease consultation was requested. The patient was placed on Zosyn. Case was discussed with Rox Murphy, nurse practitioner for Dr. Celis. Notes and records were noted. Case was discussed with the patient and the RN. REVIEW OF SYSTEMS: CONSTITUTIONAL: He feels better. No new focal weakness. He did have fevers that have improved. No chills at this time. HEAD AND NECK: No sinus tenderness. No neck stiffness. No change in vision, thrush, or dysphagia. No weight loss or night sweats. CARDIAC: No chest pain or palpitation. GASTROINTESTINAL: He did come with abdominal pain. Currently, no significant abdominal pain that is controlled postoperatively. No nausea, vomiting, or diarrhea. PULMONARY: No congestion, shortness of breath, hemoptysis, or secretions. SKIN: No rash or itching. EXTREMITIES: No extremity pain. NEUROLOGIC: No seizures. GENITOURINARY: No dysuria or frequency. No CVA tenderness. PAST MEDICAL HISTORY: Includes hypertension. There is no other past medical history of diabetes, cancer, or heart disease. ALLERGIES: He has no antibiotic allergies in addition to no known drug allergies. SOCIAL HISTORY: Negative for smoking, alcohol, or drug abuse. FAMILY HISTORY: Noncontributory. MEDICATIONS: Upon reviewing the MAR, he is on following medications. He was on Zosyn and Flagyl. I discontinued the Flagyl. He is on Norvasc and Apresoline p.r.n. He is on docusate and Colace. He is on morphine, hydrocodone, Zofran, magnesium hydroxide, zolpidem, metoclopramide, diphenhydramine as needed I believe. Outside medications are reconciliated, medications include enalapril. PHYSICAL EXAMINATION: VITAL SIGNS: Temperature maximum 100.3, temperature currently is 98.1, pulse rate is 78, respiratory rate 18, blood pressure 140/71, saturation 98%. Pulse rate has been as high as 117. GENERAL: Alert, responsive, oriented x3. HEAD AND NECK: Oral exam, no thrush. Eye exam, no icterus. No JVD. Normocephalic. No facial droop. No neck stiffness. Neck is supple. HEART: Regular. No gallop or murmur. No friction rub. ABDOMEN: Soft. Some distention. Positive bowel sounds. Nontender. No rebound. Pain is controlled. LUNGS: Clear bilaterally. No rhonchi or rales. SKIN: No rash. MUSCULOSKELETAL: No effusion. Legs are without cellulitis. PERIPHERAL VASCULAR: No cyanosis or gangrene. GENITOURINARY: No Rudd. LINE SITES: Without phlebitis. NEUROLOGIC: Intact. Nonfocal. Alert and oriented x3. LABORATORY DATA: White count 13.1, hemoglobin 10.2. White count yesterday was 16.5. LFTs were noted. UA was 0-2 white blood cells. Chest x-ray showed no consolidation. CT scan of the abdomen and pelvis, report was noted, it was suggestive of cholecystitis. Surgical cultures done are pending at this time. Creatinine 1.7. ASSESSMENT AND PLAN: 1. The patient has acute cholecystitis and gangrenous cholecystitis. Status post open cholecystectomy. Most likely pathogens are gram-negatives and anaerobes. Must consider also possibly the Enterococcus. At this time, Zosyn will continue, Zosyn 3.375 IV q.8 hours over slow infusion which are good therapeutic levels for anaerobic, gram-negative, and Enterococcus coverage. We will follow up on cultures if done on surgery. Check followup labs. Sepsis seems to have improved. His white count and is leukocytosis and fevers have improved today. Continue Zosyn and we will follow closely. Watch creatinine closely. He does have elevated creatinine. 2. Hypertension. 3. Acute kidney injury. 4. Elevated creatinine. 5. Edema. 6. Pain management. 7. Social history negative. 8. Family history noncontributory. 9. No known allergies. 10. MAR was noted. 11. Case was discussed with RN. 12. Case was discussed with the patient. 13. Case discussed with Rox Murphy, nurse practitioner. 14. Notes and records were reviewed. 15. Orders were noted and entered. Thank you for this consultation. I will follow with you. Kimberley Frederick M.D. DR: Jose JOB#: [id number] CC:
[2017-11-17] VITALS: BP 156/74
[2017-11-17 04:00] VITALS: BP 159/73
[2017-11-17 07:04] LABS: ALANINE AMINOTRANSFERASE 50 U/L (12-78); ALBUMIN 1.9 G/DL (3.4-5.0); ALBUMIN/GLOBULIN RATIO 0.5 (1.0-2.7); ALKALINE PHOSPHATASE 79 U/L (46-116); ANION GAP 3 mmol/L (5-15); ASPARTATE AMINO TRANSFERASE 31 U/L (15-37); BILIRUBIN,TOTAL 0.7 MG/DL (0.2-1.0); BLOOD UREA NITROGEN 20 mg/dL (7-18); CARBON DIOXIDE 28 MMOL/L (21-32); CHLORIDE 106 MMOL/L (98-107); CREATININE 1.6 MG/DL (0.55-1.30); POTASSIUM 4.2 MMOL/L (3.5-5.1); SODIUM 137 MMOL/L (136-145)
[2017-11-17 07:32] LABS: BASOPHILS % (AUTO) 1.2 % (0.0-2.0); EOSINOPHILS % (AUTO) 9.5 % (0.0-3.0); HEMATOCRIT 29.6 % (42.0-52.0); HEMOGLOBIN 9.4 G/DL (14.2-18.0); LYMPHOCYTES % (AUTO) 15.7 % (20.0-45.0); MEAN CORPUSCULAR VOLUME 82 FL (80-99); MONOCYTES % (AUTO) 8.6 % (1.0-10.0); NEUTROPHILS % (AUTO) 65.1 % (45.0-75.0); PLATELET COUNT 268 K/UL (150-450); RED BLOOD COUNT 3.61 M/UL (4.70-6.10); RED CELL DISTRIBUTION WIDTH 12.3 % (11.6-14.8); WHITE BLOOD COUNT 8.2 K/UL (4.8-10.8)
[2017-11-17 08:00] VITALS: BP 152/69
[2017-11-17] MEDS: Docusate 100mg cap ORAL SCH ×2 (09:06→18:15)
[2017-11-17 12:00] VITALS: BP 166/69
--- NOTE | 2017-11-17 13:19 | General Progress Note ---
Progress Note Progress Note Surgery: overall improving. feels better. ambulatory. no n/v/f/c. tolerating diet. + BM labs improving exam benign. wounds c/d/i pain controlled -d/c planning from surgical standpoint. -trend labs Chris Porter Nov 17, 2017 13:19
[2017-11-17] MEDS: HydrALAZINE 25mg tab ORAL PRN (13:35)
[2017-11-17] MEDS: Piperacillin/Tazobactam 3.375 GM in NS 110 ML IVPB SCH ×2 (13:51→22:01)
--- NOTE | 2017-11-17 14:34 | Pulmonology Progress Note ---
Assessment/Plan Problems: (1) Dyspnea (2) Morbid obesity (3) Ex-smoker (4) CKD (chronic kidney disease) (5) Acute cholecystitis Assessment/Plan improving eating well check electrolytes dvt prophylaxis. Subjective ROS Limited/Unobtainable: No Constitutional: Reports: no symptoms HEENT: Repors: no symptoms Respiratory: Reports: no symptoms Allergies: Coded Allergies: No Known Allergies (Unverified , 11/13/17) Objective Last 24 Hour Vital Signs Date Time Temp Pulse Resp B/P (MAP) Pulse Ox O2 Delivery O2 Flow Rate FiO2 11/17/17 13:35 166/69 11/17/17 12:00 97.7 78 20 166/69 99 Room Air 97.7 11/17/17 09:06 91 152/69 11/17/17 08:00 97.9 91 20 152/69 98 Room Air 97.9 11/17/17 04:00 98.2 79 20 159/73 97 Room Air 98.2 11/17/17 00:00 98.2 80 19 156/74 97 Room Air 98.2 11/16/17 20:00 98.4 80 20 157/68 96 Room Air 98.4 11/16/17 16:23 98.5 90 19 129/73 97 Room Air 98.5 11/16/17 15:53 90 129/73 Intake and Output 11/16/17 11/17/17 19:00 07:00 Intake Total 841 ml Output Total 200 ml Balance 641 ml Intake Oral 240 ml IV Total 601 ml Output Urine Total 200 ml # Voids 3 # Bowel Movements 3 2 General Appearance: WD/WN HEENT: normocephalic, atraumatic Respiratory/Chest: chest wall non-tender, lungs clear Cardiovascular: normal peripheral pulses, normal rate Abdomen: normal bowel sounds, soft, non tender Genitourinary: normal external genitalia Extremities: no cyanosis Skin: no rash Microbiology Date/Time Source Procedure Growth Status 11/15/17 14:45 Blood Blood Culture - Preliminary NO GROWTH AFTER 24 HOURS Resulted 11/15/17 14:30 Blood Blood Culture - Preliminary NO GROWTH AFTER 24 HOURS Resulted Laboratory Tests 11/17/17 05:50: White Blood Count 8.2, Red Blood Count 3.61L, Hemoglobin 9.4L, Hematocrit 29.6L , Mean Corpuscular Volume 82, Mean Corpuscular Hemoglobin 25.9L, Mean Corpuscular Hemoglobin Concent 31.6L, Red Cell Distribution Width 12.3, Platelet Count 268, Mean Platelet Volume 5.4L, Neutrophils (%) (Auto) 65.1, Lymphocytes (%) (Auto) 15.7L, Monocytes (%) (Auto) 8.6, Eosinophils (%) (Auto) 9.5H, Basophils (%) (Auto) 1.2, Sodium Level 137, Potassium Level 4.2, Chloride Level 106, Carbon Dioxide Level 28, Anion Gap 3L, Blood Urea Nitrogen 20H, Creatinine 1.6H, Estimat Glomerular Filtration Rate 44.5, Glucose Level 113H, Calcium Level 8.0L, Total Bilirubin 0.7, Aspartate Amino Transf (AST/SGOT) 31, Alanine Aminotransferase (ALT/SGPT) 50, Alkaline Phosphatase 79, Total Protein 5.6L, Albumin 1.9L, Globulin 3.7, Albumin/Globulin Ratio 0.5L Current Medications Medications (Trade) Dose Ordered Sig/Joel Route PRN Reason Start Time Stop Time Status Last Admin Dose Admin Acetaminophen (Tylenol) 650 mg Q6H PRN ORAL Mild Pain (Pain Scale 1-3) 11/13/17 22:31 12/13/17 22:30 11/16/17 00:17 Acetaminophen/ Hydrocodone Bitart ([place] 10/325) 1 tab Q4H PRN ORAL Severe Pain (Pain Scale 7-10) 11/13/17 22:31 11/20/17 22:30 11/15/17 23:02 Acetaminophen/ Hydrocodone Bitart ([place] 5/325) 1 tab Q4H PRN ORAL Moderate Pain (Pain Scale 4-6) 11/13/17 22:31 11/20/17 22:30 Al Hydroxide/Mg Hydroxide (Mylanta) 15 ml Q6H PRN ORAL DYSPEPSIA 11/13/17 22:31 12/13/17 22:30 11/16/17 00:18 Amlodipine Besylate (Norvasc) 10 mg DAILY ORAL 11/17/17 09:00 12/17/17 08:59 11/17/17 09:06 Diphenhydramine HCl (Benadryl) 12.5 mg Q6H PRN IVP Itching/Pruritis 11/13/17 22:30 12/13/17 22:29 Diphenhydramine HCl (Benadryl) 25 mg Q8H PRN ORAL Itching/Pruritis 11/13/17 22:30 12/13/17 22:29 Docusate Sodium (Colace) 100 mg TWICE A DAY ORAL 11/14/17 09:00 12/14/17 08:59 11/17/17 09:06 Hydralazine HCl (Apresoline) 25 mg Q6H PRN ORAL SBP > 160 11/15/17 16:00 12/15/17 15:59 11/17/17 13:35 Magnesium Hydroxide (Mom) 30 ml BIDPRN PRN ORAL Constipation 11/13/17 22:31 12/13/17 22:30 11/16/17 09:54 Metoclopramide HCl (Reglan) 10 mg Q6H PRN IVP Nausea & Vomiting 11/13/17 22:30 12/13/17 22:29 Morphine Sulfate (Morphine Sulfate) 4 mg Q2H PRN IVP Severe Pain (Pain Scale 7-10) 11/13/17 22:31 11/20/17 22:30 Ondansetron HCl (Zofran) 4 mg Q6H PRN IVP Nausea & Vomiting 11/13/17 22:31 12/13/17 22:30 11/16/17 20:00 Piperacillin Sod/ Tazobactam Sod 3.375 gm/Sodium Chloride 110 ml @ 27.5 mls/hr EVERY 8 HOURS IVPB 11/17/17 14:00 11/20/17 13:59 11/17/17 13:51 Zolpidem Tartrate (Ambien) 5 mg DAILYPRN PRN ORAL Insomnia 11/13/17 22:31 11/20/17 22:30 Jeanne Martin MD Nov 17, 2017 14:34
[2017-11-17 16:00] VITALS: BP 144/52
--- NOTE | 2017-11-17 16:36 | General Progress Note ---
Assessment/Plan Problem List: (1) FRANKLIN (acute kidney injury) ICD Codes: N17.9 - Acute kidney failure, unspecified SNOMED: 03881739 (2) HTN (hypertension) ICD Codes: I10 - Essential (primary) hypertension SNOMED: 20462446 (3) Sepsis ICD Codes: A41.9 - Sepsis, unspecified organism SNOMED: 82709686 (4) Acute cholecystitis ICD Codes: K81.0 - Acute cholecystitis SNOMED: 38369800 (5) Acute kidney injury superimposed on CKD ICD Codes: N17.9 - Acute kidney failure, unspecified; N18.9 - Chronic kidney disease, unspecified SNOMED: 81788436, 170658597 (6) Acute blood loss anemia ICD Codes: D62 - Acute posthemorrhagic anemia SNOMED: 567604229 (7) CKD (chronic kidney disease) ICD Codes: N18.9 - Chronic kidney disease, unspecified SNOMED: 265410819 (8) Morbid obesity ICD Codes: E66.01 - Morbid (severe) obesity due to excess calories SNOMED: 694850983 Status: stable, progressing Assessment/Plan - General surgery consulted, appreciate rec's - Nephrology consulted for FRANKLIN on CKD, appreciate rec's - ID consulted for worsening sepsis, appreciate rec's - s/p open cholecystectomy, POD#4 - continue IV zosyn per ID (11/15 -). can change to augmentin and ciprofloxacin x 1 week upon discharge per ID. - check blood cultures, UA, CXR -- negative - monitor H/H. transfuse prn Hgb < 7 - IVF - ADAT - Trend Cr, downtrending. stable at 1.6 from admission. unknown baseline. - increase norvasc to 10mg qd - hydralazine 25mg q6hr prn SBP > 160 - pain control and supportive care - Hold home enalapril given FRANKLIN. may resume upon discharge as Cr has stabilized at 1.6, likely patient's baseline. - PT/OT - educate on nutrition given s/p cholecystectomy (i.e. low fat foods) CLEARED FOR DISCHARGE PER GENERAL SURGERY AND ID. DISPO PLANNING IN AM IF H/H AND CR STABLE. DVT Prophylaxis: SCD Code Status: Full Hospital Classification Declaration: Based on this initial evaluation, and depending on the patient's clinical course, I anticipate that this patient will require hospitalization for 2-3 days for acute cholecystitis and close respiratory/hemodynamic monitoring. Disposition: Once the patient is stable to leave the hospital, I anticipate the patient will likely be discharged to the following environment: home with HH I spent 30 minutes on this patient's case, and 23 minutes were dedicated to counseling and/or care coordination. Discussed with patient/family, nursing staff, SW/CM, ID, nephrology, general surgery regarding clinical status, treatment course, and disposition planning. Time of note may not reflect time of encounter. Subjective Date patient seen: Nov 17, 2017 Time patient seen: 16:36 Allergies: Coded Allergies: No Known Allergies (Unverified , 11/13/17) Subjective - afebrile, BP elevated to 160s - WBC normalized, Hgb downtrending - Cr stable - reports pain well controlled. denies n/v, cp, sob Objective Last 24 Hour Vital Signs Date Time Temp Pulse Resp B/P (MAP) Pulse Ox O2 Delivery O2 Flow Rate FiO2 11/17/17 13:35 166/69 11/17/17 12:00 97.7 78 20 166/69 99 Room Air 97.7 11/17/17 09:06 91 152/69 11/17/17 08:00 97.9 91 20 152/69 98 Room Air 97.9 11/17/17 04:00 98.2 79 20 159/73 97 Room Air 98.2 11/17/17 00:00 98.2 80 19 156/74 97 Room Air 98.2 11/16/17 20:00 98.4 80 20 157/68 96 Room Air 98.4 Intake and Output 11/16/17 11/17/17 19:00 07:00 Intake Total 841 ml Output Total 200 ml Balance 641 ml Intake Oral 240 ml IV Total 601 ml Output Urine Total 200 ml # Voids 3 # Bowel Movements 3 2 Laboratory Tests 11/17/17 05:50: White Blood Count 8.2, Red Blood Count 3.61L, Hemoglobin 9.4L, Hematocrit 29.6L , Mean Corpuscular Volume 82, Mean Corpuscular Hemoglobin 25.9L, Mean Corpuscular Hemoglobin Concent 31.6L, Red Cell Distribution Width 12.3, Platelet Count 268, Mean Platelet Volume 5.4L, Neutrophils (%) (Auto) 65.1, Lymphocytes (%) (Auto) 15.7L, Monocytes (%) (Auto) 8.6, Eosinophils (%) (Auto) 9.5H, Basophils (%) (Auto) 1.2, Sodium Level 137, Potassium Level 4.2, Chloride Level 106, Carbon Dioxide Level 28, Anion Gap 3L, Blood Urea Nitrogen 20H, Creatinine 1.6H, Estimat Glomerular Filtration Rate 44.5, Glucose Level 113H, Calcium Level 8.0L, Total Bilirubin 0.7, Aspartate Amino Transf (AST/SGOT) 31, Alanine Aminotransferase (ALT/SGPT) 50, Alkaline Phosphatase 79, Total Protein 5.6L, Albumin 1.9L, Globulin 3.7, Albumin/Globulin Ratio 0.5L Height (Feet): 5 Height (Inches): 9.00 Weight (Pounds): 220 General Appearance: no apparent distress, alert EENT: PERRL/EOMI, normal ENT inspection Neck: non-tender, normal alignment, supple Cardiovascular: normal peripheral pulses, normal rate, regular rhythm Respiratory/Chest: chest wall non-tender, lungs clear, normal breath sounds Abdomen: normal bowel sounds, non tender, soft, distended, other - incisional tenderness. surgical incision with cordell c/d/i Extremities: normal range of motion, non-tender Neurologic: bankruptcy processor II-XII grossly normal, no motor/sensory deficits, alert, oriented x 3 Skin: other - abdominal surgical incision with cordell c//d/i Rox Murphy NP Nov 17, 2017 16:36
--- NOTE | 2017-11-17 19:05 | Nephrology Progress Note ---
Assessment/Plan Problem List: (1) CKD (chronic kidney disease) (2) HTN (hypertension) (3) FRANKLIN (acute kidney injury) (4) Acute cholecystitis Plan 24 hrs for protein and creatinine follow BMP Subjective Subjective ok Objective Objective Last 24 Hour Vital Signs Date Time Temp Pulse Resp B/P (MAP) Pulse Ox O2 Delivery O2 Flow Rate FiO2 11/17/17 16:00 98.8 81 18 144/52 98 Room Air 98.8 11/17/17 13:35 166/69 11/17/17 12:00 97.7 78 20 166/69 99 Room Air 97.7 11/17/17 09:06 91 152/69 11/17/17 08:00 97.9 91 20 152/69 98 Room Air 97.9 11/17/17 04:00 98.2 79 20 159/73 97 Room Air 98.2 11/17/17 00:00 98.2 80 19 156/74 97 Room Air 98.2 11/16/17 20:00 98.4 80 20 157/68 96 Room Air 98.4 Intake and Output 11/16/17 11/17/17 19:00 07:00 Intake Total 841 ml Output Total 200 ml Balance 641 ml Intake Oral 240 ml IV Total 601 ml Output Urine Total 200 ml # Voids 3 # Bowel Movements 3 2 Laboratory Tests 11/17/17 05:50: White Blood Count 8.2, Red Blood Count 3.61L, Hemoglobin 9.4L, Hematocrit 29.6L , Mean Corpuscular Volume 82, Mean Corpuscular Hemoglobin 25.9L, Mean Corpuscular Hemoglobin Concent 31.6L, Red Cell Distribution Width 12.3, Platelet Count 268, Mean Platelet Volume 5.4L, Neutrophils (%) (Auto) 65.1, Lymphocytes (%) (Auto) 15.7L, Monocytes (%) (Auto) 8.6, Eosinophils (%) (Auto) 9.5H, Basophils (%) (Auto) 1.2, Sodium Level 137, Potassium Level 4.2, Chloride Level 106, Carbon Dioxide Level 28, Anion Gap 3L, Blood Urea Nitrogen 20H, Creatinine 1.6H, Estimat Glomerular Filtration Rate 44.5, Glucose Level 113H, Calcium Level 8.0L, Total Bilirubin 0.7, Aspartate Amino Transf (AST/SGOT) 31, Alanine Aminotransferase (ALT/SGPT) 50, Alkaline Phosphatase 79, Total Protein 5.6L, Albumin 1.9L, Globulin 3.7, Albumin/Globulin Ratio 0.5L Height (Feet): 5 Height (Inches): 9.00 Weight (Pounds): 220 Cardiovascular: normal rate Respiratory/Chest: lungs clear, normal breath sounds Stevie Carney MD Nov 17, 2017 19:05
[2017-11-17 20:00] VITALS: BP 155/78
[2017-11-18] VITALS: BP 150/73
[2017-11-18 04:00] VITALS: BP 149/65
[2017-11-18] MEDS: Piperacillin/Tazobactam 3.375 GM in NS 110 ML IVPB SCH ×2 (06:49→14:17)
[2017-11-18 07:22] LABS: BASOPHILS % (AUTO) 1.9 % (0.0-2.0); EOSINOPHILS % (AUTO) 9.3 % (0.0-3.0); HEMATOCRIT 32.5 % (42.0-52.0); HEMOGLOBIN 10.3 G/DL (14.2-18.0); LYMPHOCYTES % (AUTO) 22.3 % (20.0-45.0); MEAN CORPUSCULAR VOLUME 82 FL (80-99); MONOCYTES % (AUTO) 8.4 % (1.0-10.0); PLATELET COUNT 339 K/UL (150-450); RED BLOOD COUNT 3.94 M/UL (4.70-6.10); RED CELL DISTRIBUTION WIDTH 12.3 % (11.6-14.8); WHITE BLOOD COUNT 8.7 K/UL (4.8-10.8)
[2017-11-18 07:43] LABS: ALANINE AMINOTRANSFERASE 49 U/L (12-78); ALBUMIN 2.4 G/DL (3.4-5.0); ALBUMIN/GLOBULIN RATIO 0.6 (1.0-2.7); ALKALINE PHOSPHATASE 95 U/L (46-116); ANION GAP 5 mmol/L (5-15); ASPARTATE AMINO TRANSFERASE 34 U/L (15-37); BILIRUBIN,TOTAL 0.5 MG/DL (0.2-1.0); BLOOD UREA NITROGEN 17 mg/dL (7-18); CARBON DIOXIDE 29 MMOL/L (21-32); CHLORIDE 105 MMOL/L (98-107); CREATININE 1.5 MG/DL (0.55-1.30); POTASSIUM 4.2 MMOL/L (3.5-5.1); SODIUM 139 MMOL/L (136-145)
[2017-11-18 08:00] VITALS: BP 140/60
[2017-11-18] MEDS: Docusate 100mg cap ORAL SCH (08:06)
[2017-11-18 12:00] VITALS: BP 138/68
[2017-11-18] MEDS ORDERED: AUGMENTIN 875-1 EAC1 ORAL (13:17)
[2017-11-18] MEDS ORDERED: CIPRO500 MG PO (13:17)
[2017-11-18] MEDS ORDERED: NORVASC10 MG ORAL (13:17)
--- NOTE | 2017-11-18 14:47 | Infectious Diseases Prog Note ---
Assessment/Plan Assessment/Plan ASSESSMENT AND PLAN: 1. acute cholecystitis/gangrenous cholecystitis, sepsis, fevers, leukocytosis - s/p open cholecystectomy - clinically improved, sepsis improved - zosyn iv - can transition to oral augmentin plus cipro for one week - d/w Rox Murphy NP 2. Hypertension. 3. Acute kidney injury. 4. Elevated creatinine. 5. Edema. 6. Pain management. 7. Social history negative. 8. Family history noncontributory. 9. No known allergies. 10. MAR was noted. 11. Case was discussed with RN. 12. Case was discussed with the patient. 13. Case discussed with Rox Murphy, nurse practitioner. 14. Notes and records were reviewed. 15. Orders were noted and entered. Subjective Constitutional: Denies: fever HEENT: Denies: congestion Respiratory: Denies: shortness of breath Cardiovascular: Denies: chest pain Gastrointestinal/Abdominal: Reports: other - abdominal pain less ; Denies: nausea, vomiting, diarrhea Neurologic: Denies: headache Psychiatric: Denies: depression Skin: Denies: rash Hematologic: Denies: bleeding Musculoskeletal: Denies: pain Allergies: Coded Allergies: No Known Allergies (Unverified , 11/13/17) Objective Vital Signs Last 24 Hour Vital Signs Date Time Temp Pulse Resp B/P (MAP) Pulse Ox O2 Delivery O2 Flow Rate FiO2 11/18/17 12:00 97.0 74 20 138/68 98 Room Air 97.0 11/18/17 08:06 77 140/60 11/18/17 08:00 97.7 77 18 140/60 99 Room Air 97.7 11/18/17 04:00 98.5 70 18 149/65 97 Room Air 98.5 11/18/17 00:00 98.5 78 19 150/73 99 Room Air 98.5 11/17/17 20:00 98.7 78 18 155/78 99 Room Air 98.7 11/17/17 16:00 98.8 81 18 144/52 98 Room Air 98.8 Height (Feet): 5 Height (Inches): 9.00 Weight (Pounds): 220 General Appearance: no acute distress HEENT: normocephalic, atraumatic, anicteric, mucous membranes moist Respiratory/Chest: lungs clear, normal breath sounds, no respiratory distress, no accessory muscle use Cardiovascular: normal rate, regular rhythm, no gallop/murmur, no JVD Abdomen: normal bowel sounds, soft, non tender, no organomegaly, non distended Genitourinary: other - no cai Extremities: no cyanosis Skin: no rash, other - incision - c/d Neurologic/Psychiatric: head of [employer] II-XII grossly normal, alert, oriented x 3, responsive Lymphatic: no neck adenopathy Musculoskeletal: no effusion Objective CT abdomen and pelvis: Impression: Abnormal appearing gallbladder, which contains gallstones. There is also moderately dense material filling much of the gallbladder lumen. This may represent tumefactive sludge, an amorphous gallstone tumor, or blood. There is also infiltration of the pericholecystic fat. This raises concern for acute cholecystitis. However, the presence of bloody appearing intraperitoneal fluid also raises concern for gallbladder wall hemorrhage. Ultrasound and/or hepatobiliary nuclear scanning may be useful for further evaluation Mildly ectatic common hepatic duct, tapering to normal caliber distal common bile duct, and no evidence of downstream obstruction. Correlate with liver function tests Other findings as noted, including lobulated bilateral kidneys, evidence of prior Chest x-ray - atx noted (report reviewed) Microbiology Date/Time Source Procedure Growth Status 11/15/17 14:45 Blood Blood Culture - Preliminary NO GROWTH AFTER 48 HOURS Resulted Microbiology Date/Time Source Procedure Growth Status 11/15/17 14:45 Blood Blood Culture - Preliminary NO GROWTH AFTER 48 HOURS Resulted Laboratory Tests Test 11/18/17 05:20 White Blood Count 8.7 K/UL (4.8-10.8) Red Blood Count 3.94 M/UL (4.70-6.10) L Hemoglobin 10.3 G/DL (14.2-18.0) L Hematocrit 32.5 % (42.0-52.0) L Mean Corpuscular Volume 82 FL (80-99) Mean Corpuscular Hemoglobin 26.1 PG (27.0-31.0) L Mean Corpuscular Hemoglobin Concent 31.7 G/DL (32.0-36.0) L Red Cell Distribution Width 12.3 % (11.6-14.8) Platelet Count 339 K/UL (150-450) Mean Platelet Volume 5.3 FL (6.5-10.1) L Neutrophils (%) (Auto) 58.0 % (45.0-75.0) Lymphocytes (%) (Auto) 22.3 % (20.0-45.0) Monocytes (%) (Auto) 8.4 % (1.0-10.0) Eosinophils (%) (Auto) 9.3 % (0.0-3.0) H Basophils (%) (Auto) 1.9 % (0.0-2.0) Sodium Level 139 MMOL/L (136-145) Potassium Level 4.2 MMOL/L (3.5-5.1) Chloride Level 105 MMOL/L (98-107) Carbon Dioxide Level 29 MMOL/L (21-32) Anion Gap 5 mmol/L (5-15) Blood Urea Nitrogen 17 mg/dL (7-18) Creatinine 1.5 MG/DL (0.55-1.30) H Estimat Glomerular Filtration Rate 47.9 mL/min (>60) Glucose Level 105 MG/DL (74-106) Calcium Level 9.0 MG/DL (8.5-10.1) Total Bilirubin 0.5 MG/DL (0.2-1.0) Aspartate Amino Transf (AST/SGOT) 34 U/L (15-37) Alanine Aminotransferase (ALT/SGPT) 49 U/L (12-78) Alkaline Phosphatase 95 U/L (46-116) Total Protein 6.5 G/DL (6.4-8.2) Albumin 2.4 G/DL (3.4-5.0) L Globulin 4.1 g/dL Albumin/Globulin Ratio 0.6 (1.0-2.7) L Current Medications Medications (Trade) Dose Ordered Sig/Joel Route PRN Reason Start Time Stop Time Status Last Admin Dose Admin Acetaminophen (Tylenol) 650 mg Q6H PRN ORAL Mild Pain (Pain Scale 1-3) 11/13/17 22:31 12/13/17 22:30 11/16/17 00:17 Acetaminophen/ Hydrocodone Bitart ([place] 10/325) 1 tab Q4H PRN ORAL Severe Pain (Pain Scale 7-10) 11/13/17 22:31 11/20/17 22:30 11/15/17 23:02 Acetaminophen/ Hydrocodone Bitart ([place] 5/325) 1 tab Q4H PRN ORAL Moderate Pain (Pain Scale 4-6) 11/13/17 22:31 11/20/17 22:30 Al Hydroxide/Mg Hydroxide (Mylanta) 15 ml Q6H PRN ORAL DYSPEPSIA 11/13/17 22:31 12/13/17 22:30 11/16/17 00:18 Amlodipine Besylate (Norvasc) 10 mg DAILY ORAL 11/17/17 09:00 12/17/17 08:59 11/18/17 08:06 Diphenhydramine HCl (Benadryl) 12.5 mg Q6H PRN IVP Itching/Pruritis 11/13/17 22:30 12/13/17 22:29 Diphenhydramine HCl (Benadryl) 25 mg Q8H PRN ORAL Itching/Pruritis 11/13/17 22:30 12/13/17 22:29 Docusate Sodium (Colace) 100 mg TWICE A DAY ORAL 11/14/17 09:00 12/14/17 08:59 11/18/17 08:06 Hydralazine HCl (Apresoline) 25 mg Q6H PRN ORAL SBP > 160 11/15/17 16:00 12/15/17 15:59 11/17/17 13:35 Magnesium Hydroxide (Mom) 30 ml BIDPRN PRN ORAL Constipation 11/13/17 22:31 12/13/17 22:30 11/16/17 09:54 Metoclopramide HCl (Reglan) 10 mg Q6H PRN IVP Nausea & Vomiting 11/13/17 22:30 12/13/17 22:29 Morphine Sulfate (Morphine Sulfate) 4 mg Q2H PRN IVP Severe Pain (Pain Scale 7-10) 11/13/17 22:31 11/20/17 22:30 Ondansetron HCl (Zofran) 4 mg Q6H PRN IVP Nausea & Vomiting 11/13/17 22:31 12/13/17 22:30 11/16/17 20:00 Piperacillin Sod/ Tazobactam Sod 3.375 gm/Sodium Chloride 110 ml @ 27.5 mls/hr EVERY 8 HOURS IVPB 11/17/17 14:00 11/20/17 13:59 11/18/17 14:17 Zolpidem Tartrate (Ambien) 5 mg DAILYPRN PRN ORAL Insomnia 11/13/17 22:31 6/20/18 22:30 Kimberley Frederick MD Nov 18, 2017 14:47
--- NOTE | 2017-11-18 15:01 | Nephrology Progress Note ---
Assessment/Plan Problem List: (1) Acute kidney injury superimposed on CKD (2) HTN (hypertension) Assessment Events of last few days noted- discussed with Dr Stevie Carney (1) CKD (chronic kidney disease) (2) HTN (hypertension) (3) FRANKLIN (acute kidney injury) Cr lower 1.5 (4) Acute cholecystitis s/p surgery (5) Anemia (6) Obesity Plan long discussion with patient and . Upon discharge-Need to follow up as out patient for further eval of proteinuria and high Cr Subjective ROS Limited/Unobtainable: No Constitutional: Reports: weakness Objective Objective Last 24 Hour Vital Signs Date Time Temp Pulse Resp B/P (MAP) Pulse Ox O2 Delivery O2 Flow Rate FiO2 11/18/17 12:00 97.0 74 20 138/68 98 Room Air 97.0 11/18/17 08:06 77 140/60 11/18/17 08:00 97.7 77 18 140/60 99 Room Air 97.7 11/18/17 04:00 98.5 70 18 149/65 97 Room Air 98.5 11/18/17 00:00 98.5 78 19 150/73 99 Room Air 98.5 11/17/17 20:00 98.7 78 18 155/78 99 Room Air 98.7 11/17/17 16:00 98.8 81 18 144/52 98 Room Air 98.8 Intake and Output 11/17/17 11/18/17 19:00 07:00 Intake Total 1000 ml 300 ml Balance 1000 ml 300 ml Intake Oral 1000 ml 300 ml # Voids 3 2 # Bowel Movements 1 Current Medications Medications (Trade) Dose Ordered Sig/Joel Route PRN Reason Start Time Stop Time Status Last Admin Dose Admin Acetaminophen (Tylenol) 650 mg Q6H PRN ORAL Mild Pain (Pain Scale 1-3) 11/13/17 22:31 12/13/17 22:30 11/16/17 00:17 Acetaminophen/ Hydrocodone Bitart ([place] 10/325) 1 tab Q4H PRN ORAL Severe Pain (Pain Scale 7-10) 11/13/17 22:31 11/20/17 22:30 11/15/17 23:02 Acetaminophen/ Hydrocodone Bitart ([place] 5/325) 1 tab Q4H PRN ORAL Moderate Pain (Pain Scale 4-6) 11/13/17 22:31 11/20/17 22:30 Al Hydroxide/Mg Hydroxide (Mylanta) 15 ml Q6H PRN ORAL DYSPEPSIA 11/13/17 22:31 12/13/17 22:30 11/16/17 00:18 Amlodipine Besylate (Norvasc) 10 mg DAILY ORAL 11/17/17 09:00 12/17/17 08:59 11/18/17 08:06 Diphenhydramine HCl (Benadryl) 12.5 mg Q6H PRN IVP Itching/Pruritis 11/13/17 22:30 12/13/17 22:29 Diphenhydramine HCl (Benadryl) 25 mg Q8H PRN ORAL Itching/Pruritis 11/13/17 22:30 12/13/17 22:29 Docusate Sodium (Colace) 100 mg TWICE A DAY ORAL 11/14/17 09:00 12/14/17 08:59 11/18/17 08:06 Hydralazine HCl (Apresoline) 25 mg Q6H PRN ORAL SBP > 160 11/15/17 16:00 12/15/17 15:59 11/17/17 13:35 Magnesium Hydroxide (Mom) 30 ml BIDPRN PRN ORAL Constipation 11/13/17 22:31 12/13/17 22:30 11/16/17 09:54 Metoclopramide HCl (Reglan) 10 mg Q6H PRN IVP Nausea & Vomiting 11/13/17 22:30 12/13/17 22:29 Morphine Sulfate (Morphine Sulfate) 4 mg Q2H PRN IVP Severe Pain (Pain Scale 7-10) 11/13/17 22:31 11/20/17 22:30 Ondansetron HCl (Zofran) 4 mg Q6H PRN IVP Nausea & Vomiting 11/13/17 22:31 12/13/17 22:30 11/16/17 20:00 Piperacillin Sod/ Tazobactam Sod 3.375 gm/Sodium Chloride 110 ml @ 27.5 mls/hr EVERY 8 HOURS IVPB 11/17/17 14:00 11/20/17 13:59 11/18/17 14:17 Zolpidem Tartrate (Ambien) 5 mg DAILYPRN PRN ORAL Insomnia 11/13/17 22:31 11/20/17 22:30 Laboratory Tests 11/18/17 05:20: White Blood Count 8.7, Red Blood Count 3.94L, Hemoglobin 10.3L, Hematocrit 32.5L , Mean Corpuscular Volume 82, Mean Corpuscular Hemoglobin 26.1L, Mean Corpuscular Hemoglobin Concent 31.7L, Red Cell Distribution Width 12.3, Platelet Count 339, Mean Platelet Volume 5.3L, Neutrophils (%) (Auto) 58.0, Lymphocytes (%) (Auto) 22.3, Monocytes (%) (Auto) 8.4, Eosinophils (%) (Auto) 9.3H, Basophils (%) (Auto) 1.9, Sodium Level 139, Potassium Level 4.2, Chloride Level 105, Carbon Dioxide Level 29, Anion Gap 5, Blood Urea Nitrogen 17, Creatinine 1.5H, Estimat Glomerular Filtration Rate 47.9, Glucose Level 105, Calcium Level 9.0, Total Bilirubin 0.5, Aspartate Amino Transf (AST/SGOT) 34, Alanine Aminotransferase (ALT/SGPT) 49, Alkaline Phosphatase 95, Total Protein 6.5, Albumin 2.4L, Globulin 4.1, Albumin/Globulin Ratio 0.6L Height (Feet): 5 Height (Inches): 9.00 Weight (Pounds): 220 General Appearance: no apparent distress Cardiovascular: normal rate Respiratory/Chest: decreased breath sounds Abdomen: soft, other - obese TRUDY MELO Nov 18, 2017 15:01
--- NOTE | 2017-11-18 15:03 | Discharge Summary ---
Discharge Summary Hospital Course Date of Admission Nov 13, 2017 at 22:47 Date of Discharge November 18, 2017 Admitting Diagnosis acute cholecystitis HPI Karan Dobson is a 57 year old male who was admitted on Nov 13, 2017 at 22:47 for Acute Cholecystitis 57 y/o male with a PMH of HTN that presented to the ER yesterday for acute RUQ pain. Patient states that he had had abdominal discomfort for the last 4 days and has since been worsening. Patient was noted to have a WBC a [address] was noted to show gallstones with acute cholecystitis and the presence of bloody appearing intraperitoneal fluid raising concern for GB wall hemorrhage. Mildly ectatic common hepatic duct with no e/o downstream obstruction. Patient was also noted to have elevated LFTs. Patient was seen by surgery and taken to the OR last night for an open cholecystectomy with no periop or postop complications. Today, patient is stable with pain well controlled. Rudd catheter removed, voiding well. Reports ambulating well and tolerating clear liquid diet. Denies cp, sob, n/v, f/c, d/c. Denies passing flatus. Consultations General surgery Nephrology ID Procedures s/p open cholecystectomy Hospital Course Patient underwent open cholecystectomy and was continued on IV abx. Patient started having fevers and WBC increased postoperatively as well as an uptrending Cr. ID and nephrology were consulted. Patient's antibiotics were broadened. Fevers subsequently resolved and leukocytosis resolved. Patient was given IVF and UA was noted to have 4+ proteins. 24-hour urine protein collection was done which showed a protein level of 194. Patient's Cr trended down. Patient was also noted to have elevated blood pressure and norvasc was started. Patient's blood pressure further normalized. Patient ambulated appropriately. Diet was advanced and tolerated regular diet well. Patient's H/H was stable. Patient was therefore cleared for discharge by general surgery, nephrology, and ID and was advised to follow up with general surgery and nephrology within 1 week. Patient was given a prescription for a week of augmentin and ciprofloxacin per ID. Patient was also given a prescription for norvasc. Patient was therefore hemodynamically stable for discharge. Patient was educated on avoiding fatty foods given cholecystectomy prior to discharge and given instructions for local wound care to incisional area. Discharge Medications New Medications: Amoxicillin/Potassium Clav 875-125* (Augmentin 875-125 Tablet*) 1 Each Tablet 1 TAB ORAL TWICE A DAY for 6 Days, #12 TAB Ciprofloxacin* (Cipro*) 500 Mg Tablet 500 MG PO BID for 6 Days, #12 TAB Amlodipine Besylate (Norvasc) 10 Mg Tablet 10 MG ORAL DAILY for 30 Days, #30 TAB Continued Medications: Enalapril Maleate* (Enalapril Maleate*) 10 Mg Tablet 10 MG ORAL DAILY, TAB (This prescription has been renewed) Discharge Condition Upon Discharge: improving, stable Discharge Disposition Patient was discharged to Home with Home Health(06) Discharge Diagnoses: (1) Proteinuria (2) Acute cholecystitis (3) Abdominal pain (4) Sepsis (5) HTN (hypertension) (6) FRANKLIN (acute kidney injury) (7) Dyspnea (8) Morbid obesity (9) CKD (chronic kidney disease) (10) Acute blood loss anemia (11) Acute kidney injury superimposed on CKD Rox Murphy NP Nov 18, 2017 15:03
[2017-11-18 16:00] VITALS: BP 155/66
--- NOTE | 2017-11-18 16:20 | General Progress Note ---
Progress Note Progress Note Surgery: d/c home rx written f/u with me next week Chris Porter Nov 18, 2017 16:20
== END 2017-11-18 17:34 | disposition home health service (06) | DRG 854 ==
LOC: EDBD 13:21 → EMR 14:02 → SUR 16:28 → EDBEDREQ 16:30 → EDBEDREQSVC 16:32 → EDBEDREQ 16:34 → 3E 22:47 → 4E 11-16 15:31
PROC: 0FT40ZZ Resection of Gallbladder, Open Approach (ICD-10-PCS; principal; 2017-11-14)
PROC: 0FJ44ZZ Inspection of Gallbladder, Percutaneous Endoscopic Approach (ICD-10-PCS; principal; 2017-11-14)
DX: A41.9 Sepsis, unspecified organism (principal); N17.9 Acute kidney failure, unspecified; D62 Acute posthemorrhagic anemia; K80.00 Calculus of gallbladder with acute cholecystitis without obstruction; I12.9 Hypertensive chronic kidney disease with stage 1 through stage 4 chronic kidney disease, or unspecified chronic kidney disease; N18.9 Chronic kidney disease, unspecified; E66.01 Morbid (severe) obesity due to excess calories; Z68.32 Body mass index [BMI] 32.0-32.9, adult; Z87.891 Personal history of nicotine dependence; Z53.31 Laparoscopic surgical procedure converted to open procedure; R80.9 Proteinuria, unspecified
CPT/HCPCS: 36415; 71045; 74176; 80053; 81001; 81003; 81050; 82248; 82550; 82553; 82570; 83036; 83605; 83690; 84100; 84156; 84484; 85025; 85610; 85730; 87040; 93005; 94003; 94150; 99285; J2250; J2405; J2710